=== PATIENT | female | born 1940 | race Caucasian/White ===

== ENCOUNTER 2019-01-31 03:10 | Inpatient (IN) | payer MEDICARE ==
--- NOTE | 2019-01-31 03:33 | ER Document Report ---
ED General - General Chief Complaint: Altered Mental Status Stated Complaint: Altered Mental Status Time Seen by Provider: 01/31/19 03:23 Notes: Patient is a 78-year-old female that comes emergency department from home with family for chief complaint of altered mental status. Family states that it 2 AM patient suddenly became completely confused, did not know what was going on, did not recognize her family, started trying to chew on blankets. They state that about 15 hours ago patient also seemed confused. They state otherwise patient has been acting normally and her baseline is completely oriented. No facial droop, focal numbness or weakness, vomiting, fall, or other symptoms reported except for occasionally complaining of some abdominal pain intermittently for the past couple of days. No fevers reported. Patient does have a history of lung cancer and that she elected not to have treated, this was about a year ago on diagnosis, she still smokes, she is on 2 L nasal cannula at all times, has a history of COPD, type 2 diabetes, and gout. She is not on a blood thinner. She has had a cholecystectomy. No medical history reported otherwise. Son is power of business attorney and at bedside, patient does not have DNR preparations. - Related Data Allergies/Adverse Reactions: ofloxacin [From Floxin] Allergy (Verified 01/31/19 04:40) Penicillins Allergy (Verified 01/31/19 04:39) Past Medical History - General Information source: Relative - son and granddaughter - Social History Smoking Status: Current Every Day Smoker Frequency of alcohol use: None Drug Abuse: None Lives with: Family Family History: Reviewed & Not Pertinent Pulmonary Medical History: Reports: Hx COPD Endocrine Medical History: Reports: Hx Diabetes Mellitus Type 2 Malignancy Medical History: Reports: Hx Lung Cancer Musculoskeletal Medical History: Reports Hx Gout Past Surgical History: Reports: Hx Cholecystectomy - Immunizations Immunizations up to date: Yes Hx Diphtheria, Pertussis, Tetanus Vaccination: Yes Review of Systems - Review of Systems Constitutional: See HPI EENT: No symptoms reported Cardiovascular: No symptoms reported Respiratory: No symptoms reported Gastrointestinal: See HPI Genitourinary: No symptoms reported Female Genitourinary: No symptoms reported Musculoskeletal: No symptoms reported Skin: No symptoms reported Hematologic/Lymphatic: No symptoms reported Neurological/Psychological: See HPI Physical Exam - Vital signs Vitals: Resp 24 H 01/31/19 03:19 - Notes Notes: GENERAL: Alert, responsive, does not appear to be in distress HEAD: Normocephalic, atraumatic. EYES: Pupils equal, round, and reactive to light. Extraocular movements intact. ENT: Oral mucosa dry, tongue midline. Oropharynx unremarkable. Airway patent. NECK: Full range of motion. Supple. Trachea midline. LUNGS: Decreased bilaterally, no wheezes, rales, or rhonchi. No respiratory distress. HEART: Regular rate and rhythm. No murmur ABDOMEN: Bloating of the abdomen with diffuse generalized tenderness but no specific areas of guarding. Bowel sounds are present. GENITOURINARY: No obvious concerning external abnormality EXTREMITIES: Moves all 4 extremities spontaneously. No edema, normal radial and dorsalis pedis pulses bilaterally. No cyanosis. BACK: no cervical, thoracic, lumbar midline tenderness. No saddle anesthesia, normal distal neurovascular exam. Moves all extremities in full range of motion. NEUROLOGICAL: Alert and cooperative but only oriented to person, not oriented to family, events, place. Normal speech. Cranial nerves II through XII grossly intact. PSYCH: Normal affect, normal mood. SKIN: Warm, dry, normal turgor. No rashes or lesions noted. Course - Re-evaluation Re-evalutation: Patient is alert and cooperative but she is confused to everything but her person. This is apparently not her baseline at all, normally she is completely oriented and conversational per family at bedside. Patient is not tachycardic, hypotensive. Lungs clear, exam unremarkable except she does have a bloated and generally tender abdomen without severe tenderness or guarding. Temperature checked and patient was noted to have a fever of 100.8, given Tylenol, septic work-up initiated. Cultures pending. Urinalysis unremarkable, chest x-ray unremarkable, CBC shows mild leukocytosis but is nonspecific, chemistry shows hyponatremia with elevated BUN but is otherwise nonspecific. Lipase negative. Troponin indeterminate. CAT scan of the abdomen and pelvis with IV contrast performed because of family reporting she was complaining of abdominal pain, fever, and bloating/tenderness on exam. This is likely mets to the liver and enteritis versus mesenteritis or pancreatitis. Lipase is not elevated. Starting on Rocephin and Flagyl because of her penicillin and ofloxacin allergy, patient has been given initial 500 cc bolus before labs and now she is on slow continuous fluids. I did discuss all the details with family including the probable metastasis from known lung cancer. Son is the power of business attorney, he states that he is hoping that patient returns to mental baseline so he can discuss this with her as well. Because of her altered mental status, fever, mesenteritis/enteritis patient will require admission. Discussed with Dr. Lerma. 01/31/19 07:[address] Bernabe, hospitalist, patient admitted to [facility] full admission. - Vital Signs Vital signs: Temp Pulse Resp BP Pulse Ox 98.7 F 91 19 127/50 H 97 01/31/19 06:09 01/31/19 07:03 01/31/19 07:03 01/31/19 07:03 01/31/19 07:03 - Laboratory Result Diagrams: 01/31/19 03:40 01/31/19 03:40 Laboratory results interpreted by me: 01/31/19 01/31/19 01/31/19 03:24 03:40 03:40 WBC 11.9 H RBC 5.39 H RDW 15.7 H Lymph % (Auto) 9.5 L Absolute Neuts (auto) 9.2 H Sodium 128.8 L Chloride 90 L BUN 24 H Glucose 166 H POC Glucose 152 H Calcium 10.4 H AST 41 H Alkaline Phosphatase 130 H Total Protein 6.0 L Urine Protein Urine Blood 01/31/19 04:35 WBC RBC RDW Lymph % (Auto) Absolute Neuts (auto) Sodium Chloride BUN Glucose POC Glucose Calcium AST Alkaline Phosphatase Total Protein Urine Protein 30 H Urine Blood SMALL H Discharge - Discharge Clinical Impression: Altered mental status Qualifiers: Altered mental status type: unspecified Qualified Code(s): R41.82 - Altered mental status, unspecified Abdominal pain Qualifiers: Abdominal location: generalized Qualified Code(s): R10.84 - Generalized abdominal pain Fever Qualifiers: Fever type: unspecified Qualified Code(s): R50.9 - Fever, unspecified Lung cancer, primary, with metastasis from lung to other site Qualifiers: Laterality: unspecified laterality Qualified Code(s): C34.90 - Malignant neoplasm of unspecified part of unspecified bronchus or lung Condition: Stable Disposition: ADMITTED INPATIENT Admitting Provider: Srinivasa (Hospitalist) Unit Admitted: [facility]
[2019-01-31] MEDS ORDERED: ACETAMINOPHEN 325 MG TABLET PO ONE (03:41)
[2019-01-31 04:09] LABS: VENOUS BLOOD BASE EXCESS 3.1 mmol/L; VENOUS BLOOD HCO3 29.6 mmol/L (20-32); VENOUS BLOOD PH 7.37 (7.30-7.42)
[2019-01-31 04:13] LABS: ABSOLUTE BASOPHILS # (AUTO) 0.1 10^3/uL (0.0-0.2); ABSOLUTE EOSINOPHILS # (AUTO) 0.4 10^3/uL (0.0-0.6); ABSOLUTE LYMPHOCYTES (AUTO) 1.1 10^3/uL (0.5-4.7); ABSOLUTE MONOCYTES (AUTO) 1.1 10^3/uL (0.1-1.4); ABSOLUTE NEUT (AUTO) 9.2 10^3/uL (1.7-8.2); BASOPHILS % (AUTO) 0.9 % (0-2); EOSINOPHILS % (AUTO) 3.2 % (0-6); HEMOGLOBIN 14.7 g/dL (12.0-15.5); LYMPHOCYTES % (AUTO) 9.5 % (13-45); MEAN CORPUSCULAR HEMOGLOBIN 27.3 pg (27.0-33.4); MEAN CORPUSCULAR HGB CONC 32.7 g/dL (32.0-36.0); MEAN CORPUSCULAR VOLUME 84 fl (80-97); PLATELET COUNT 225 10^3/uL (150-450); RED BLOOD COUNT 5.39 10^6/uL (3.72-5.28); RED CELL DISTRIBUTION WIDTH 15.7 % (11.5-14.0); SEGMENTED NEUTROPHILS % (AUTO) 77.4 % (42-78); TOTAL CELLS COUNTED % (AUTO) 100 %; WHITE BLOOD COUNT 11.9 10^3/uL (4.0-10.5)
[2019-01-31 04:22] LABS: ALBUMIN 3.6 g/dL (3.5-5.0); ALKALINE PHOSPHATASE 130 U/L (38-126); ANION GAP 9 (5-19); ASPARTATE AMINO TRANSFERASE 41 U/L (14-36); BILIRUBIN,DIRECT 0.3 mg/dL (0.0-0.4); BILIRUBIN,TOTAL 0.9 mg/dL (0.2-1.3); BLOOD UREA NITROGEN 24 mg/dL (7-20); CALCIUM 10.4 mg/dL (8.4-10.2); CARBON DIOXIDE 30 mmol/L (22-30); CHLORIDE 90 mmol/L (98-107); GLUCOSE 166 mg/dL (75-110); POTASSIUM 4.8 mmol/L (3.6-5.0)
[2019-01-31] MEDS ORDERED: NORMAL SALINE 500 ML IV ONE (04:28)
[2019-01-31 04:37] LABS: ANISOCYTOSIS SLIGHT; PLATELET COMMENT ADEQUATE; PLATELET LARGE PRESENT
--- NOTE | 2019-01-31 04:45 | RADIOLOGY REPORT (SQ) ---
EXAM DESCRIPTION: CT HEAD WITHOUT IV CONTRAST COMPLETED DATE/TME: 01/31/2019 03:29 CLINICAL HISTORY: AMS, hx untreated lung cancer COMPARISON: None available TECHNIQUE: Axial CT of the head obtained from the skull apex to the skull base without contrast. FINDINGS: No acute intracranial hemorrhage identified. No mass, mass effect, shift of the midline, abnormal extra-axial fluid collection or CT evidence of acute ischemic change identified. The ventricular system and sulcal spaces are age appropriate. Confluent areas of hypodensity throughout the supratentorial white matter are nonspecific and may be related to chronic small vessel ischemic change. The visualized paranasal sinuses and the mastoids are clear. No skull fracture identified. Visualized orbits and globes are unremarkable. Atherosclerotic calcification of the intracranial internal carotid arteries. DLP: 990.56 mGy-cm IMPRESSION: 1. No acute intracranial abnormality by CT criteria. This exam was performed according to our departmental dose-optimization program, which includes automated exposure control, adjustment of the mA and/or kV according to patient size and/or use of iterative reconstruction technique.
--- NOTE | 2019-01-31 04:55 | RADIOLOGY REPORT (SQ) ---
EXAM DESCRIPTION: XR CHEST 1 VIEW COMPLETED DATE/TME: 01/31/2019 03:29 CLINICAL HISTORY: 78 years, Female, AMS COMPARISON: None. NUMBER OF VIEWS: 1 TECHNIQUE: Portable chest LIMITATIONS: None. FINDINGS: Cardiomegaly. Atheromatous change thoracic aorta. Osteopenia. Lungs clear. No pneumothorax IMPRESSION: Cardiomegaly. Lungs are clear copyright 2010 [employer]- All Rights Reserved
[2019-01-31 04:56] LABS: APPEARANCE,URINE CLEAR; BILIRUBIN,URINE NEGATIVE (NEGATIVE); COLOR,URINE YELLOW; GLUCOSE, URINE NEGATIVE (NEGATIVE); KETONES,URINE NEGATIVE (NEGATIVE); LEUKOCYTE ESTERASE,URINE NEGATIVE (NEGATIVE); NITRITE,URINE NEGATIVE (NEGATIVE); PROTEIN,URINE 30 mg/dL (NEGATIVE); URINE SPECIFIC GRAVITY 1.006; UROBILINOGEN,URINE NEGATIVE mg/dL (<2.0)
--- NOTE | 2019-01-31 07:08 | RADIOLOGY REPORT (SQ) ---
EXAM DESCRIPTION: CT ABDOMEN PELVIS WITH IV CONTRAST COMPLETED DATE/TME: 01/31/2019 05:13 CLINICAL HISTORY: abd pain, fever. CREAT 0.77 COMPARISON: None Available. TECHNIQUE: CT of the abdomen and pelvis performed following IV administration of 59 mL of Omnipaque 350. DLP: 950.74 mGycm FINDINGS: Lung Bases: Coronary artery atherosclerosis. In the left lung there are 2 subsolid nodular opacities, largest seen on image #9, series 4 measuring 0.4 cm. Bones: Bilateral L4 pars defects with grade 2 spondylolisthesis of L4 over L5. Bilateral L5 pars defects with grade 1 spondylolisthesis of L5 over S1. Multilevel endplate spondylosis. Abdomen: Liver: Multiple hypoenhancing nodules in the right hepatic lobe, the largest of these is in hepatic segment VIII measuring 1.8 x 1.8 cm. Gallbladder: Prior cholecystectomy. Spleen, Pancreas, and Adrenal Glands: Calcified splenic granulomas. Wedge-shaped hypodensities in the spleen of indeterminate etiology may represent remote infarctions. Splenic mass not excluded. General glands are unremarkable. The distal body and tail of the pancreas appear 2 hypoenhancing.. Kidneys: The kidneys have normal size without evidence of solid mass or hydronephrosis. Vasculature: Aortoiliac atherosclerosis. IVC is unremarkable. The portal vein is patent. The proximal visceral and renal arteries are patent. Questionable haziness surrounding the mesenteric vessels of indeterminate etiology. Stomach: The stomach and duodenum have normal course. Other: No free intraperitoneal air. No free fluid or lymphadenopathy. Pelvis: Bladder: Urinary bladder is unremarkable. Bowel: No dilated loops of large or small bowel. Appendix: Not identified. Pelvis: Fat-containing left inguinal hernia. Prior hysterectomy. IMPRESSION: 1. Hypodensity involving the distal body and tail of the pancreas with mild haziness surrounding mesenteric vessels. These findings could be seen with pancreatitis. Correlation with serum lipase recommended. Alternatively, if lipase normal, these findings may be related nonspecific enteritis/mesenteritis of infectious or inflammatory etiology. 2. Multiple hypoenhancing hypodensities in the right hepatic lobe, the largest measuring 1.8 cm. These findings are concerning for metastatic disease. 3. Wedge-shaped peripheral hypodensities involving the spleen. These may represent remote infarctions. Apparently, other splenic lesion or metastatic disease may produce this appearance. 4. Incompletely evaluated multiple subsolid nodules in the left lung, largest measuring [address] of the chest recommended for complete characterization. 5. Coronary artery atherosclerosis. This exam was performed according to our departmental dose-optimization program, which includes automated exposure control, adjustment of the mA and/or kV according to patient size and/or use of iterative reconstruction technique.
[2019-01-31] MEDS ORDERED: NORMAL SALINE 1000 ML 1,000 ML IV PRN ×2 (07:14→08:15)
[2019-01-31] MEDS ORDERED: CEFTRIAXONE 1 GM/D5W RTU 1 GM/50 ML RTUPB IV ONE (07:22)
--- NOTE | 2019-01-31 08:03 | EKG REPORT ---
SEVERITY:- ABNORMAL ECG - SINUS TACHYCARDIA VENTRICULAR TRIGEMINY LEFT AXIS DEVIATION PROBABLE LVH WITH SECONDARY REPOL ABNRM : Confirmed by: Jennifer Flower MD 31-Jan-2019 08:02:41
[2019-01-31] MEDS ORDERED: ONDANSETRON HCL INJ/PF 4 MG/2 ML SDV IV PRN (08:15)
[2019-01-31] MEDS ORDERED: DEXTROSE 50%-WATER 25 GM/50 ML DISP.SYRIN IV PRN ×2 (08:22)
[2019-01-31] MEDS ORDERED: DEXTROSE 40% GEL 15 GM TUBE PO PRN ×2 (08:22)
[2019-01-31] MEDS ORDERED: GLUCAGON,HUMAN RECOMB 1 MG INJ IM PRN (08:22)
[2019-01-31] MEDS ORDERED: METRONIDAZOLE 500 MG/NS RTU 500 MG/100 ML RTUPB IV ONE (08:30)
--- NOTE | 2019-01-31 08:36 | PDOC H&P ---
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 As per the family members patient is complaining of nonspecific abdominal pain back pain since yesterday. No nausea no vomiting no constipation noticed foul- smelling diarrhea. Not on antibiotics recently. Went to see the patient in the emergency room son was at bedside he has the power of trade mark attorney and he requested to make her mom DNR/DNI. Past Medical History Pulmonary Medical History: Reports: Chronic Obstructive Pulmonary Disease (COPD) Endocrine Medical History: Reports: Diabetes Mellitus Type 2 Malignancy Medical History: Reports: Lung Cancer Musculoskeltal Medical History: Reports: Gout Past Surgical History Past Surgical History: Reports: Cholecystectomy Social History Lives with: Family Smoking Status: Current Every Day Smoker Frequency of Alcohol Use: None Hx Recreational Drug Use: No Hx Prescription Drug Abuse: No - Advance Directive Resuscitation Status: Do Not Resuscitate Family History Family History: Reviewed & Not Pertinent Parental Family History Reviewed: Yes - Hypertension and heart problems Children Family History Reviewed: Unknown Sibling(s) Family History Reviewed.: Unknown Medication/Allergy Allergies/Adverse Reactions: ofloxacin [From Floxin] Allergy (Verified 01/31/19 04:40) Penicillins Allergy (Verified 01/31/19 04:39) Review of Systems ROS unobtainable: Other - History obtained from the family members Constitutional: ABSENT: fatigue, fever(s), headache(s), night sweats, weakness Eyes: ABSENT: visual disturbances Ears: ABSENT: hearing changes Nose, Mouth, and Throat: ABSENT: sore throat Cardiovascular: ABSENT: dyspnea on exertion, orthropnea, palpitations Respiratory: ABSENT: dyspnea, hemoptysis Gastrointestinal: PRESENT: diarrhea Genitourinary: ABSENT: dysuria, hematuria Integumentary: ABSENT: rash, wounds Neurological: PRESENT: confusion Psychiatric: PRESENT: anxiety Physical Exam Vital Signs: Temp Pulse Resp BP Pulse Ox 98.7 F 91 19 127/50 H 97 01/31/19 06:09 01/31/19 07:03 01/31/19 07:03 01/31/19 07:03 01/31/19 07:03 Intake & Output 01/30/19 01/31/19 02/01/19 06:59 06:59 06:59 Intake Total 500 50 Balance 500 50 Weight 52 kg General appearance: PRESENT: disheveled, mild distress, thin Head exam: PRESENT: atraumatic Eye exam: PRESENT: PERRLA Mouth exam: PRESENT: dry mucosa Teeth exam: PRESENT: poor dentation Neck exam: ABSENT: carotid bruit, JVD, lymphadenopathy, thyromegaly Respiratory exam: PRESENT: decreased breath sounds Cardiovascular exam: PRESENT: RRR. ABSENT: diastolic murmur, rubs, systolic murmur GI/Abdominal exam: PRESENT: normal bowel sounds, soft. ABSENT: distended, guarding, mass, organolmegaly, rebound, tenderness Rectal exam: PRESENT: deferred Extremities exam: PRESENT: full ROM. ABSENT: calf tenderness, clubbing, pedal edema Neurological exam: PRESENT: alert, awake, oriented to time, oriented to situation, CN II-XII grossly intact. ABSENT: oriented to person, oriented to place, motor sensory deficit Psychiatric exam: PRESENT: agitated, anxious Results Laboratory Results: 01/31/19 03:40 01/31/19 03:40 01/31/19 01/31/19 01/31/19 03:40 03:40 03:40 WBC 11.9 H RBC 5.39 H Hgb 14.7 Hct 45.0 MCV 84 MCH 27.3 MCHC 32.7 RDW 15.7 H Plt Count 225 Seg Neutrophils % 77.4 VBG pH 7.37 VBG pCO2 52.0 VBG HCO3 29.6 VBG Base Excess 3.1 Sodium 128.8 L Potassium 4.8 Chloride 90 L Carbon Dioxide 30 Anion Gap 9 BUN 24 H Creatinine 0.77 Est GFR ( Amer) > 60 Glucose 166 H Lactic Acid Calcium 10.4 H Total Bilirubin 0.9 AST 41 H Alkaline Phosphatase 130 H Total Protein 6.0 L Albumin 3.6 Lipase 53.7 Urine Color Urine Appearance Urine pH Ur Specific [place] Urine Protein Urine Glucose (UA) Urine Ketones Urine Blood Urine Nitrite Ur Leukocyte Esterase Urine WBC (Auto) 01/31/19 01/31/19 03:40 04:35 WBC RBC Hgb Hct MCV MCH MCHC RDW Plt Count Seg Neutrophils % VBG pH VBG pCO2 VBG HCO3 VBG Base Excess Sodium Potassium Chloride Carbon Dioxide Anion Gap BUN Creatinine Est GFR ( Amer) Glucose Lactic Acid 1.9 Calcium Total Bilirubin AST Alkaline Phosphatase Total Protein Albumin Lipase Urine Color YELLOW Urine Appearance CLEAR Urine pH 7.0 Ur Specific [place] 1.006 Urine Protein 30 H Urine Glucose (UA) NEGATIVE Urine Ketones NEGATIVE Urine Blood SMALL H Urine Nitrite NEGATIVE Ur Leukocyte Esterase NEGATIVE Urine WBC (Auto) 0 01/31/19 03:40 Troponin I 0.044 Impressions: Chest X-Ray 01/31/19 03:29 IMPRESSION: Cardiomegaly. Lungs are clear copyright 2010 [employer]- All Rights Reserved Head CT 01/31/19 03:29 IMPRESSION: 1. No acute intracranial abnormality by CT criteria. This exam was performed according to our departmental dose-optimization program, which includes automated exposure control, adjustment of the mA and/or kV according to patient size and/or use of iterative reconstruction technique. Abdomen/Pelvis CT 01/31/19 05:13 IMPRESSION: 1. Hypodensity involving the distal body and tail of the pancreas with mild haziness surrounding mesenteric vessels. These findings could be seen with pancreatitis. Correlation with serum lipase recommended. Alternatively, if lipase normal, these findings may be related nonspecific enteritis/mesenteritis of infectious or inflammatory etiology. 2. Multiple hypoenhancing hypodensities in the right hepatic lobe, the largest measuring 1.8 cm. These findings are concerning for metastatic disease. 3. Wedge-shaped peripheral hypodensities involving the spleen. These may represent remote infarctions. Apparently, other splenic lesion or metastatic disease may produce this appearance. 4. Incompletely evaluated multiple subsolid nodules in the left lung, largest measuring [address] of the chest recommended for complete characterization. 5. Coronary artery atherosclerosis. This exam was performed according to our departmental dose-optimization program, which includes automated exposure control, adjustment of the mA and/or kV according to patient size and/or use of iterative reconstruction technique. Assessment and Plan - Diagnosis (1) Abdominal pain Qualifiers: Abdominal location: generalized Qualified Code(s): R10.84 - Generalized abdominal pain Is this a current diagnosis for this admission?: Yes (2) Lung cancer, primary, with metastasis from lung to other site Qualifiers: Laterality: unspecified laterality Qualified Code(s): C34.90 - Malignant neoplasm of unspecified part of unspecified bronchus or lung Is this a current diagnosis for this admission?: No (3) Altered mental status Qualifiers: Altered mental status type: unspecified Qualified Code(s): R41.82 - Altered mental status, unspecified Is this a current diagnosis for this admission?: Yes (4) Fever Qualifiers: Fever type: unspecified Qualified Code(s): R50.9 - Fever, unspecified Is this a current diagnosis for this admission?: Yes (6) Protein-energy malnutrition Qualifiers: Protein-calorie malnutrition severity: moderate Qualified Code(s): E44.0 - Moderate protein-calorie malnutrition Is this a current diagnosis for this admission?: Yes - Summary Assessment: 01[birth year]31[birth year][id number]-arsb-old female with history of COPD not on home oxygen, lung can cer with mets to the liver, gout, chronic smoker, diabetes mellitus type 2 admitted for altered mental status CT head was negative in the emergency room. CT abdominal pelvis indicates possible enteritis. Family is given the history of foul-smelling diarrhea since yesterday and she was started on IV levofloxacin 500 mg daily and Flagyl 500 mg every 6 hours. Blood cultures urine cultures are requested. Family requesting for a DNR/DNI status. She is going to be admitted to the medical floor as inpatient. Palliative care consult was requested. GI prophylaxis DVT prophylaxis initiated. To place her on nicotine patch. Patient also found to be cachectic BMI is less than 22. Dietary consult will be requested. CT scan of the abdomen also shows possible mets to the liver. She was placed on insulin sliding scale before meals and at bedtime. Fall precautions are requested. She was also started on IV fluids normal saline at 75 cc/h. I am going to follow the patient on regular basis. Work-up will be requested. She has a Lau's catheter.
[2019-01-31] MEDS ORDERED: FAMOTIDINE 20 MG TABLET PO SCH (10:00)
[2019-01-31] MEDS: LEVOFLOXACIN 500 MG/D5W RTU 500 MG/100 ML RTUPB IV SCH (11:04)
[2019-01-31] MEDS: FAMOTIDINE 20 MG TABLET PO SCH (13:02)
[2019-01-31] MEDS: INSULIN REG, HUMAN 100 UNIT/ML 3 ML VIAL (PYX) SUBCUT SCH ×2 (13:06→17:41)
[2019-01-31] MEDS: METRONIDAZOLE 500 MG/NS RTU 500 MG/100 ML RTUPB IV SCH ×2 (16:00→22:09)
[2019-01-31] MEDS: HEPARIN SOD (PORCINE) 5,000 UNIT/ML 1 ML VIAL SUBCUT SCH ×2 (17:41→22:10)
[2019-01-31] MEDS: NICOTINE 21 MG/24 HR PATCH.TD24 TD SCH (17:43)
[2019-02-01] MEDS: INSULIN REG, HUMAN 100 UNIT/ML 3 ML VIAL (PYX) SUBCUT SCH ×5 (01:11→21:29)
[2019-02-01] MEDS: METRONIDAZOLE 500 MG/NS RTU 500 MG/100 ML RTUPB IV SCH ×4 (02:12→20:08)
[2019-02-01] MEDS: LORAZEPAM INJ 2 MG/1 ML VIAL IV PRN ×2 (02:12→19:52)
[2019-02-01 05:13] LABS: ALBUMIN 2.9 g/dL (3.5-5.0); ALKALINE PHOSPHATASE 98 U/L (38-126); ANION GAP 7 (5-19); ASPARTATE AMINO TRANSFERASE 39 U/L (14-36); BILIRUBIN,DIRECT 0.2 mg/dL (0.0-0.4); BILIRUBIN,TOTAL 0.6 mg/dL (0.2-1.3); BLOOD UREA NITROGEN 20 mg/dL (7-20); CALCIUM 9.6 mg/dL (8.4-10.2); CARBON DIOXIDE 27 mmol/L (22-30); CHLORIDE 99 mmol/L (98-107); GLUCOSE 108 mg/dL (75-110); POTASSIUM 3.7 mmol/L (3.6-5.0); TOTAL PROTEIN 5.1 g/dL (6.3-8.2)
[2019-02-01] MEDS: HEPARIN SOD (PORCINE) 5,000 UNIT/ML 1 ML VIAL SUBCUT SCH ×3 (06:19→21:19)
[2019-02-01 06:41] LABS: ABSOLUTE BASOPHILS # (AUTO) 0.1 10^3/uL (0.0-0.2); ABSOLUTE EOSINOPHILS # (AUTO) 0.2 10^3/uL (0.0-0.6); ABSOLUTE LYMPHOCYTES (AUTO) 0.7 10^3/uL (0.5-4.7); ABSOLUTE MONOCYTES (AUTO) 0.8 10^3/uL (0.1-1.4); ABSOLUTE NEUT (AUTO) 5.8 10^3/uL (1.7-8.2); BASOPHILS % (AUTO) 0.9 % (0-2); EOSINOPHILS % (AUTO) 2.6 % (0-6); HEMATOCRIT 37.1 % (36.0-47.0); LYMPHOCYTES % (AUTO) 9.7 % (13-45); MEAN CORPUSCULAR HEMOGLOBIN 27.7 pg (27.0-33.4); MEAN CORPUSCULAR HGB CONC 33.4 g/dL (32.0-36.0); MEAN CORPUSCULAR VOLUME 83 fl (80-97); MONOCYTES % (AUTO) 10.7 % (3-13); PLATELET COUNT 128 10^3/uL (150-450); RED BLOOD COUNT 4.48 10^6/uL (3.72-5.28); RED CELL DISTRIBUTION WIDTH 15.6 % (11.5-14.0); SEGMENTED NEUTROPHILS % (AUTO) 76.1 % (42-78); TOTAL CELLS COUNTED % (AUTO) 100 %; WHITE BLOOD COUNT 7.6 10^3/uL (4.0-10.5)
[2019-02-01 07:05] LABS: HEMOGLOBIN 12.4 g/dL (12.0-15.5)
--- NOTE | 2019-02-01 08:48 | PDOC PROGRESS REPORT ---
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 As per the family members patient is complaining of nonspecific abdominal pain back pain since yesterday. No nausea no vomiting no constipation noticed foul-smelling diarrhea. Not on antibiotics recently. Went to see the patient in the emergency room son was at bedside he has the power of claim attorney and he requested to make her mom DNR/DNI. 02/01/[id number]-nqnr-old female with history of lung cancer metastasis to the [facility] er, COPD, chronic smoker, diabetes mellitus, gout admitted for altered mental status and possible colitis. CODE STATUS is DNR/DNI. Patient more alert more communicative but she is said she is in [place] now. Able to eat her breakfast without any problems today. No diarrhea was noticed since admission. Cultures are negative so far. Reason For Visit: COLITIS Physical Exam Vital Signs: Temp Pulse Resp BP Pulse Ox 98.3 F 84 18 133/112 H 94 02/01/19 00:00 02/01/19 00:00 02/01/19 00:00 02/01/19 00:00 02/01/19 05:02 Intake & Output 01/31/19 02/01/19 02/02/19 06:59 06:59 06:59 Intake Total 500 2025 Output Total 1 Balance 500 202 Weight 52 kg 55.3 kg General appearance: PRESENT: no acute distress, thin Head exam: PRESENT: atraumatic Eye exam: PRESENT: PERRLA Mouth exam: PRESENT: moist, tongue midline Teeth exam: PRESENT: poor dentation Neck exam: ABSENT: carotid bruit, JVD, lymphadenopathy, thyromegaly Respiratory exam: PRESENT: decreased breath sounds Cardiovascular exam: PRESENT: RRR. ABSENT: diastolic murmur, rubs, systolic murmur GI/Abdominal exam: PRESENT: normal bowel sounds, soft. ABSENT: distended, guarding, mass, organolmegaly, rebound, tenderness Rectal exam: PRESENT: deferred Extremities exam: PRESENT: full ROM. ABSENT: calf tenderness, clubbing, pedal edema Neurological exam: PRESENT: alert, awake, CN II-XII grossly intact Psychiatric exam: PRESENT: appropriate affect, normal mood. ABSENT: homicidal ideation, suicidal ideation Results Laboratory Results: 02/01/19 06:29 02/01/19 04:06 02/01/19 02/01/19 02/01/19 04:06 04:06 04:06 WBC Cancelled RBC Cancelled Hgb Cancelled Hct Cancelled MCV Cancelled MCH Cancelled MCHC Cancelled RDW Cancelled Plt Count Cancelled Seg Neutrophils % Cancelled Sodium 132.7 L Potassium 3.7 Chloride 99 Carbon Dioxide 27 Anion Gap 7 BUN 20 Creatinine 0.78 Est GFR ( Amer) > 60 Glucose 108 Calcium 9.6 Magnesium 1.5 L Total Bilirubin 0.6 AST 39 H Alkaline Phosphatase 98 Total Protein 5.1 L Albumin 2.9 L TSH 1.69 02/01/19 06:29 WBC 7.6 RBC 4.48 Hgb 12.4 D Hct 37.1 MCV 83 MCH 27.7 MCHC 33.4 RDW 15.6 H Plt Count 128 L Seg Neutrophils % 76.1 Sodium Potassium Chloride Carbon Dioxide Anion Gap BUN Creatinine Est GFR ( Amer) Glucose Calcium Magnesium Total Bilirubin AST Alkaline Phosphatase Total Protein Albumin TSH 01/31/19 03:40 Troponin I 0.044 Impressions: Chest X-Ray 01/31/19 03:29 IMPRESSION: Cardiomegaly. Lungs are clear copyright 2011 [employer]- All Rights Reserved Head CT 01/31/19 03:29 IMPRESSION: 1. No acute intracranial abnormality by CT criteria. This exam was performed according to our departmental dose-optimization program, which includes automated exposure control, adjustment of the mA and/or kV according to patient size and/or use of iterative reconstruction technique. Abdomen/Pelvis CT 01/31/19 05:13 IMPRESSION: 1. Hypodensity involving the distal body and tail of the pancreas with mild haziness surrounding mesenteric vessels. These findings could be seen with pancreatitis. Correlation with serum lipase recommended. Alternatively, if lipase normal, these findings may be related nonspecific enteritis/mesenteritis of infectious or inflammatory etiology. 2. Multiple hypoenhancing hypodensities in the right hepatic lobe, the largest measuring 1.8 cm. These findings are concerning for metastatic disease. 3. Wedge-shaped peripheral hypodensities involving the spleen. These may represent remote infarctions. Apparently, other splenic lesion or metastatic disease may produce this appearance. 4. Incompletely evaluated multiple subsolid nodules in the left lung, largest measuring [address] of the chest recommended for complete characterization. 5. Coronary artery atherosclerosis. This exam was performed according to our departmental dose-optimization program, which includes automated exposure control, adjustment of the mA and/or kV according to patient size and/or use of iterative reconstruction technique. Assessment and Plan - Diagnosis (1) Abdominal pain Qualifiers: Abdominal location: generalized Qualified Code(s): R10.84 - Generalized a bdominal pain Is this a current diagnosis for this admission?: Yes (2) Lung cancer, primary, with metastasis from lung to other site Qualifiers: Laterality: unspecified laterality Qualified Code(s): C34.90 - Malignant neoplasm of unspecified part of unspecified bronchus or lung Is this a current diagnosis for this admission?: No (3) Altered mental status Qualifiers: Altered mental status type: unspecified Qualified Code(s): R41.82 - Altered mental status, unspecified Is this a current diagnosis for this admission?: Yes (4) Fever Qualifiers: Fever type: unspecified Qualified Code(s): R50.9 - Fever, unspecified Is this a current diagnosis for this admission?: Yes (6) Protein-energy malnutrition Qualifiers: Protein-calorie malnutrition severity: moderate Qualified Code(s): E44.0 - Moderate protein-calorie malnutrition Is this a current diagnosis for this admission?: Yes - Plan Summary Summary: 01/31/[id number]-jwzj-old female with history of COPD not on home oxygen, lung cancer with mets to the liver, gout, chronic smoker, diabetes mellitus type 2 admitted for altered mental status CT head was negative in the emergency room. CT abdominal pelvis indicates possible enteritis. Family is given the history of foul-smelling diarrhea since yesterday and she was started on IV levofloxacin 500 mg daily and Flagyl 500 mg every 6 hours. Blood cultures urine cultures are requested. Family requesting for a DNR/DNI status. She is going to be admitted to the medical floor as inpatient. Palliative care consult was requested. GI prophylaxis DVT prophylaxis initiated. To place her on nicotine patch. Patient also found to be cachectic BMI is less than 22. Dietary consult will be request ed. CT scan of the abdomen also shows possible mets to the liver. She was placed on insulin sliding scale before meals and at bedtime. Fall precautions are requested. She was also started on IV fluids normal saline at 75 cc/h. I am going to follow the patient on regular basis. Work-up will be requested. She has a Lau's catheter. 02/01/2019-no acute events in the last 24 hours. Patient able to eat breakfast without any problems. More alert more awake. No diarrhea is noticed. Palliat rabia consult was requested. Patient CODE STATUS is DNR/DNI. Serum sodium is 132.7 hyponatremia most likely secondary to prerenal causes resolving. She is on normal saline at 75 cc/h.
[2019-02-01] MEDS: FAMOTIDINE 20 MG TABLET PO SCH (09:12)
[2019-02-01] MEDS: NICOTINE 21 MG/24 HR PATCH.TD24 TD SCH (09:12)
[2019-02-01] MEDS: LEVOFLOXACIN 500 MG/D5W RTU 500 MG/100 ML RTUPB IV SCH (10:54)
[2019-02-01] MEDS ORDERED: OXYCODONE HCL 15 MG PO PRN (12:55)
[2019-02-01] MEDS ORDERED: ALPRAZOLAM 0.5 MG TABLET PO PRN (13:13)
[2019-02-01] MEDS: PAROXETINE HCL 20 MG TABLET PO SCH (13:56)
[2019-02-01] MEDS: OMEGA-3 ACID ETHYL ESTERS 1 GM CAPSULE PO SCH (16:50)
[2019-02-01] MEDS ORDERED: (PENDING PHARMACY ID) (Omega-3/Dha/Epa/Fish Oil [Fish Oil 1,000 Mg Softgel] 1,000 MG) PO SCH (17:00)
[2019-02-01] MEDS: ALPRAZOLAM 0.5 MG TABLET PO PRN (17:51)
[2019-02-01] MEDS: ACETAMINOPHEN 325 MG TABLET PO PRN (19:53)
[2019-02-01] MEDS: BUSPIRONE HCL 10 MG TABLET PO SCH (21:15)
[2019-02-01] MEDS: OLANZAPINE 5 MG TABLET PO SCH (21:15)
[2019-02-01] MEDS: CARVEDILOL 6.25 MG TABLET PO SCH (21:15)
[2019-02-01] MEDS ORDERED: MINOCYCLINE HCL 100 MG PO SCH (22:00)
[2019-02-01] MEDS ORDERED: (PENDING PHARMACY ID) (Olanzapine [Zyprexa] 10 MG) PO SCH (22:00)
[2019-02-02] MEDS: METRONIDAZOLE 500 MG/NS RTU 500 MG/100 ML RTUPB IV SCH ×4 (03:30→20:23)
[2019-02-02] MEDS: HEPARIN SOD (PORCINE) 5,000 UNIT/ML 1 ML VIAL SUBCUT SCH ×3 (06:24→21:14)
[2019-02-02] MEDS: LEVOTHYROXINE SODIUM 0.05 MG TABLET PO SCH (06:42)
[2019-02-02] MEDS: INSULIN REG, HUMAN 100 UNIT/ML 3 ML VIAL (PYX) SUBCUT SCH ×4 (07:22→21:16)
--- NOTE | 2019-02-02 08:41 | PDOC PROGRESS REPORT ---
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 As per the family members patient is complaining of nonspecific abdominal pain back pain since yesterday. No nausea no vomiting no constipation noticed foul-smelling diarrhea. Not on antibiotics recently. Went to see the patient in the emergency room son was at bedside he has the power of business attorney and he requested to make her mom DNR/DNI. 02/01/[id number]-sres-old female with history of lung cancer metastasis to the [facility] er, COPD, chronic smoker, diabetes mellitus, gout admitted for altered mental status and possible colitis. CODE STATUS is DNR/DNI. Patient more alert more communicative but she is said she is in [place] now. Able to eat her breakfast without any problems today. No diarrhea was noticed since admission. Cultures are negative so far. 02/02/[id number]-lfat-old female with history of lung cancer metastatic to stress to the liver, COPD chronic smoker with history of diabetes mellitus and gout ad mitted for altered mental status and possible colitis. No diarrhea was noticed cultures are negative. Presently on IV Flagyl and IV levo floxacillin. Consult Dr. Mesa for further management of the carcinoma. Bone scan was requested for today. No acute events in the last 24 hours. Afebrile. Family wants to take her home once she is stable. Reason For Visit: COLITIS Physical Exam Vital Signs: Temp Pulse Resp BP Pulse Ox 98.3 F 95 18 149/75 H 100 02/01/19 20:34 02/01/19 20:34 02/01/19 20:34 02/01/19 20:34 02/01/19 20:34 Intake & Output 02/01/19 02/02/19 02/03/19 06:59 06:59 06:59 Intake Total 2025 1220 Output Total 1 Balance 2024 1220 Weight 55.3 kg 55.1 kg General appearance: PRESENT: no acute distress, cooperative, thin Head exam: PRESENT: atraumatic Eye exam: PRESENT: PERRLA Mouth exam: PRESENT: moist, tongue midline Teeth exam: PRESENT: poor dentation Neck exam: ABSENT: carotid bruit, JVD, lymphadenopathy, thyromegaly Respiratory exam: PRESENT: decreased breath sounds Cardiovascular exam: PRESENT: RRR. ABSENT: diastolic murmur, rubs, systolic murmur GI/Abdominal exam: PRESENT: normal bowel sounds, soft. ABSENT: distended, guarding, mass, organolmegaly, rebound, tenderness Rectal exam: PRESENT: deferred Extremities exam: PRESENT: full ROM. ABSENT: calf tenderness, clubbing, pedal edema Neurological exam: PRESENT: alert, awake, oriented to person, oriented to place, oriented to time, oriented to situation, CN II-XII grossly intact. ABSENT: motor sensory deficit Psychiatric exam: PRESENT: appropriate affect, normal mood. ABSENT: homicidal ideation, suicidal ideation Skin exam: PRESENT: dry, intact, warm. ABSENT: cyanosis, rash Results Laboratory Results: 02/01/19 06:29 02/01/19 04:06 01/31/19 03:40 Troponin I 0.044 Impressions: Chest X-Ray 01/31/19 03:29 IMPRESSION: Cardiomegaly. Lungs are clear copyright 2011 [employer]- All Rights Reserved Head CT 01/31/19 03:29 IMPRESSION: 1. No acute intracranial abnormality by CT criteria. This exam was performed according to our departmental dose-optimization program, which includes automated exposure control, adjustment of the mA and/or kV according to patient size and/or use of iterative reconstruction technique. Abdomen/Pelvis CT 01/31/19 05:13 IMPRESSION: 1. Hypodensity involving the distal body and tail of the pancreas with mild haziness surrounding mesenteric vessels. These findings could be seen with pancreatitis. Correlation with serum lipase recommended. Alternatively, if lipase normal, these findings may be related nonspecific enteritis/mesenteritis of infectious or inflammatory etiology. 2. Multiple hypoenhancing hypodensities in the right hepatic lobe, the largest measuring 1.8 cm. These findings are concerning for metastatic disease. 3. Wedge-shaped peripheral hypodensities involving the spleen. These may represent remote infarctions. Apparently, other splenic lesion or metastatic disease may produce this appearance. 4. Incompletely evaluated multiple subsolid nodules in the left lung, largest measuring [address] of the chest recommended for complete characterization. 5. Coronary artery atherosclerosis. This exam was performed according to our departmental dose-optimization program, which includes automated exposure control, adjustment of the mA and/or kV according to patient size and/or use of iterative reconstruction technique. Assessment and Plan - Diagnosis (1) Abdominal pain Qualifiers: Abdominal location: generalized Qualified Code(s): R10.84 - Generalized abdominal pain Is this a current diagnosis for this admission?: Yes (2) Lung cancer, primary, with metastasis from lung to other site Qualifiers: Laterality: unspecified laterality Qualified Code(s): C34.90 - Malignant neoplasm of unspecified part of unspecified bronchus or lung Is this a current diagnosis for this admission?: No (3) Altered mental status Qualifiers: Altered mental status type: unspecified Qualified Code(s): R41.82 - Altered mental status, unspecified Is this a current diagnosis for this admission?: Yes (4) Fever Qualifiers: Fever type: unspecified Qualified Code(s): R50.9 - Fever, unspecified Is this a current diagnosis for this admission?: Yes (6) Protein-energy malnutrition Qualifiers: Protein-calorie malnutrition severity: moderate Qualified Code(s): E44.0 - Moderate protein-calorie malnutrition Is this a current diagnosis for this admission?: Yes - Plan Summary Summary: 01/31/[id number]-gwzd-old female with history of COPD not on home oxygen, lung cancer with mets to the liver, gout, chronic smoker, diabetes mellitus type 2 admitted for altered mental status CT head was negative in the emergency room. CT abdominal pelvis indicates possible enteritis. Family is given the history of foul-smelling diarrhea since yesterday and she was started on IV levofloxacin 500 mg daily and Flagyl 500 mg every 6 hours. Blood cultures urine cultures are requested. Family requesting for a DNR/DNI status. She is going to be admitted to the medical floor as inpatient. Palliative care consult was requested. GI prophylaxis DVT prophylaxis initiated. To place her on nicotine patch. Patient also found to be cachectic BMI is less than 22. Dietary consult will be requested. CT scan of the abdomen also shows possible mets to the liver. She was placed on insulin sliding scale before meals and at bedtime. Fall precautions are requested. She was also started on IV fluids normal saline at 75 cc/h. I am going to follow the patient on regular basis. Work-up will be requested. She has a Lau's catheter. 02/01/2019-no acute events in the last 24 hours. Patient able to eat breakfast without any problems. More alert more awake. No diarrhea is noticed. Palliative consult was requested. Patient CODE STATUS is DNR/DNI. Serum sodium is 132.7 hyponatremia most likely secondary to prerenal causes resolving. She is on normal saline at 75 cc/h. 02/02/2019-no acute events in the last 24 hours. Afebrile. Consultation with Dr. Sanchez will be requested today. Bone scan was requested. Patient CODE STATUS is DNR/DNI. Family is not interested in placement. They want to take her home once is stable. These are negative so far presently on IV Flagyl and levo floxacillin. Today's labs are pending. Hyponatremia is resolving. Overall prognosis is poor.
[2019-02-02] MEDS: OMEGA-3 ACID ETHYL ESTERS 1 GM CAPSULE PO SCH ×3 (08:59→16:00)
[2019-02-02] MEDS: CARVEDILOL 6.25 MG TABLET PO SCH ×2 (09:01→21:21)
[2019-02-02] MEDS: BUSPIRONE HCL 10 MG TABLET PO SCH ×2 (09:01→21:20)
[2019-02-02] MEDS: PAROXETINE HCL 20 MG TABLET PO SCH (09:01)
[2019-02-02] MEDS: FAMOTIDINE 20 MG TABLET PO SCH (09:01)
[2019-02-02] MEDS: NICOTINE 21 MG/24 HR PATCH.TD24 TD SCH (09:01)
[2019-02-02] MEDS ORDERED: (PENDING PHARMACY ID) (Paroxetine Hcl [Paxil] 30 MG) PO SCH (10:00)
[2019-02-02 10:47] LABS: ABSOLUTE BASOPHILS # (AUTO) 0.1 10^3/uL (0.0-0.2); ABSOLUTE EOSINOPHILS # (AUTO) 0.3 10^3/uL (0.0-0.6); ABSOLUTE LYMPHOCYTES (AUTO) 0.5 10^3/uL (0.5-4.7); ABSOLUTE MONOCYTES (AUTO) 0.6 10^3/uL (0.1-1.4); ABSOLUTE NEUT (AUTO) 4.7 10^3/uL (1.7-8.2); BASOPHILS % (AUTO) 0.8 % (0-2); EOSINOPHILS % (AUTO) 5.5 % (0-6); HEMATOCRIT 36.8 % (36.0-47.0); HEMOGLOBIN 12.3 g/dL (12.0-15.5); LYMPHOCYTES % (AUTO) 7.4 % (13-45); MEAN CORPUSCULAR HEMOGLOBIN 27.8 pg (27.0-33.4); MEAN CORPUSCULAR HGB CONC 33.4 g/dL (32.0-36.0); MEAN CORPUSCULAR VOLUME 83 fl (80-97); MONOCYTES % (AUTO) 10.5 % (3-13); PLATELET COUNT 103 10^3/uL (150-450); RED BLOOD COUNT 4.42 10^6/uL (3.72-5.28); RED CELL DISTRIBUTION WIDTH 16.1 % (11.5-14.0); SEGMENTED NEUTROPHILS % (AUTO) 75.8 % (42-78); TOTAL CELLS COUNTED % (AUTO) 100 %; WHITE BLOOD COUNT 6.2 10^3/uL (4.0-10.5)
[2019-02-02] MEDS: FLUTICASONE/UMECLIDIN/VILANTER 100-62.5-25 MCG/DOSE IH SCH (10:53)
[2019-02-02] MEDS: LEVOFLOXACIN 500 MG/D5W RTU 500 MG/100 ML RTUPB IV SCH (10:57)
[2019-02-02 11:04] LABS: ALBUMIN 2.7 g/dL (3.5-5.0); ALKALINE PHOSPHATASE 128 U/L (38-126); ANION GAP 5 (5-19); ASPARTATE AMINO TRANSFERASE 38 U/L (14-36); BILIRUBIN,DIRECT 0.5 mg/dL (0.0-0.4); BILIRUBIN,TOTAL 0.8 mg/dL (0.2-1.3); BLOOD UREA NITROGEN 15 mg/dL (7-20); CALCIUM 9.3 mg/dL (8.4-10.2); CARBON DIOXIDE 25 mmol/L (22-30); CHLORIDE 105 mmol/L (98-107); GLUCOSE 120 mg/dL (75-110); POTASSIUM 3.4 mmol/L (3.6-5.0); TOTAL PROTEIN 4.9 g/dL (6.3-8.2)
--- NOTE | 2019-02-02 14:19 | RADIOLOGY REPORT (SQ) ---
EXAM DESCRIPTION: NM WHOLE BODY BONE SCAN COMPLETED DATE/TIME: 02/02/2019 1:35 pm REASON FOR STUDY: lung cancer COMPARISON: CT abdomen 01/31/2019 chest x-ray 01/31/2019 CT head 01/31/2019 RADIONUCLIDE AND DOSE: 20 millicuries Tc99m HDP. The route of agent administration: Intravenous. ADDITIONAL DRUGS AND DOSES: None. TECHNIQUE: Routine delayed images at 3 hours post radionuclide injection acquired of the bony skelet on including anterior and posterior whole-body projections and additional focused images as needed. LIMITATIONS: None. FINDINGS: BONES: There appears to be degenerative uptake in the right shoulder and right knee. No a bnormal focal skeletal uptake is seen that is suggestive of metastatic disease. KIDNEYS: Symmetric excretion without obstruction. OTHER: No other significant finding. IMPRESSION: There is no evidence of metastatic disease to bone. COMMENT: Quality measure 147: Current bone scan is compared with any available plain radiographs, p rior bone scans, and CT/MRI. TECHNICAL DOCUMENTATION: JOB ID: [id number] [employer]- All Rights Reserved Reading location - IP/workstation name: [email or web address]
[2019-02-02] MEDS: ACETAMINOPHEN 325 MG TABLET PO PRN (17:57)
[2019-02-02] MEDS: OLANZAPINE 5 MG TABLET PO SCH (21:20)
[2019-02-03] MEDS: METRONIDAZOLE 500 MG/NS RTU 500 MG/100 ML RTUPB IV SCH ×2 (02:06→11:21)
[2019-02-03] MEDS: HEPARIN SOD (PORCINE) 5,000 UNIT/ML 1 ML VIAL SUBCUT SCH ×3 (05:06→22:03)
[2019-02-03] MEDS: LEVOTHYROXINE SODIUM 0.05 MG TABLET PO SCH (06:12)
[2019-02-03] MEDS: INSULIN REG, HUMAN 100 UNIT/ML 3 ML VIAL (PYX) SUBCUT SCH ×4 (07:59→22:03)
--- NOTE | 2019-02-03 09:33 | PDOC PROGRESS REPORT ---
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 As per the family members patient is complaining of nonspecific abdominal pain back pain since yesterday. No nausea no vomiting no constipation noticed foul-smelling diarrhea. Not on antibiotics recently. Went to see the patient in the emergency room son was at bedside he has the power of employee counselor and he requested to make her mom DNR/DNI. 02/01/[id number]-hieq-old female with history of lung cancer metastasis to the liver, COPD, chronic smoker, diabetes mellitus, gout admitted for altered mental status and possible colitis. CODE STATUS is DNR/DNI. Patient more alert more communicative but she is said she is in [place] now. Able to eat her breakfast without any problems today. No diarrhea was noticed since admission. Cultures are negative so far. 02/02/[id number]-lpqb-old female with history of lung cancer metastatic to stress to the liver, COPD chronic smoker with history of diabetes mellitus and gout admitted for altered mental status and possible colitis. No diarrhea was noticed cultures are negative. Presently on IV Flagyl and IV levo floxacillin. Consult Dr. Mesa for further management of the carcinoma. Bone scan was requested for today. No acute events in the last 24 hours. Afebrile. Family wants to take her home once she is stable. 02/03/[id number]-oqho-old female admitted for altered mental status resolving. No acute events in the last 24 hours. Afebrile. Patient has lung cancer with liver mets. Bone scan was done which was negative for metastasis. Reason For Visit: COLITIS Physical Exam Vital Signs: Temp Pulse Resp BP Pulse Ox 98.8 F 77 17 131/89 H 99 02/03/19 08:00 02/03/19 08:00 02/03/19 08:00 02/03/19 08:00 02/03/19 08:00 Intake & Output 02/02/19 02/03/19 02/04/19 06:59 06:59 06:59 Intake Total 1220 2518 Balance 1220 2518 Weight 55.1 kg 55.6 kg General appearance: PRESENT: no acute distress Head exam: PRESENT: atraumatic Eye exam: PRESENT: PERRLA Mouth exam: PRESENT: moist, tongue midline Teeth exam: PRESENT: poor dentation Neck exam: ABSENT: carotid bruit, JVD, lymphadenopathy, thyromegaly Respiratory exam: PRESENT: decreased breath sounds Cardiovascular exam: PRESENT: RRR. ABSENT: diastolic murmur, rubs, systolic murmur GI/Abdominal exam: PRESENT: normal bowel sounds, soft. ABSENT: distended, guarding, mass, organolmegaly, rebound, tenderness Rectal exam: PRESENT: deferred Extremities exam: PRESENT: full ROM. ABSENT: calf tenderness, clubbing, pedal edema Neurological exam: PRESENT: alert, awake, oriented to person, oriented to place, oriented to time, oriented to situation, CN II-XII grossly intact. ABSENT: motor sensory deficit Psychiatric exam: PRESENT: appropriate affect, normal mood. ABSENT: homicidal ideation, suicidal ideation Results Laboratory Results: 02/02/19 10:13 02/02/19 10:13 02/02/19 02/02/19 10:13 10:13 WBC 6.2 RBC 4.42 Hgb 12.3 Hct 36.8 MCV 83 MCH 27.8 MCHC 33.4 RDW 16.1 H Plt Count 103 L Seg Neutrophils % 75.8 Sodium 134.8 L Potassium 3.4 L Chloride 105 Carbon Dioxide 25 Anion Gap 5 BUN 15 Creatinine 0.73 Est GFR ( Amer) > 60 Glucose 120 H Calcium 9.3 Magnesium 1.6 Total Bilirubin 0.8 AST 38 H Alkaline Phosphatase 128 H Total Protein 4.9 L Albumin 2.7 L 01/31/19 04:35 Catheterized Urine Urine Culture - Final 3,000 col/ml 01/31/19 03:40 Troponin I 0.044 Impressions: Chest X-Ray 01/31/19 03:29 IMPRESSION: Cardiomegaly. Lungs are clear copyright 2010 [employer]- All Rights Reserved Head CT 01/31/19 03:29 IMPRESSION: 1. No acute intracranial abnormality by CT criteria. This exam was performed according to our departmental dose-optimization program, which includes automated exposure control, adjustment of the mA and/or kV according to patient size and/or use of iterative reconstruction technique. Abdomen/Pelvis CT 01/31/19 05:13 IMPRESSION: 1. Hypodensity involving the distal body and tail of the pancreas with mild haziness surrounding mesenteric vessels. These findings could be seen with pancreatitis. Correlation with serum lipase recommended. Alternatively, if lipase normal, these findings may be related nonspecific enteritis/mesenteritis of infectious or inflammatory etiology. 2. Multiple hypoenhancing hypodensities in the right hepatic lobe, the largest measuring 1.8 cm. These findings are concerning for metastatic disease. 3. Wedge-shaped peripheral hypodensities involving the spleen. These may represent remote infarctions. Apparently, other splenic lesion or metastatic disease may produce this appearance. 4. Incompletely evaluated multiple subsolid nodules in the left lung, largest measuring [address] of the chest recommended for complete characterization. 5. Coronary artery atherosclerosis. This exam was performed according to our departmental dose-optimization program, which includes automated exposure control, adjustment of the mA and/or kV according to patient size and/or use of iterative reconstruction technique. Body Scan Nuclear Medicine 02/02/19 00:00 IMPRESSION: There is no evidence of metastatic disease to bone. Assessment and Plan - Diagnosis (1) Abdominal pain Qualifiers: Abdominal location: generalized Qualified Code(s): R10.84 - Generalized abdominal pain Is this a current diagnosis for this admission?: Yes (2) Lung cancer, primary, with metastasis from lung to other site Qualifiers: Laterality: unspecified laterality Qualified Code(s): C34.90 - Malignant neoplasm of unspecified part of unspecified bronchus or lung Is this a current diagnosis for this admission?: No (3) Altered mental status Qualifiers: Altered mental status type: unspecified Qualified Code(s): R41.82 - Altered mental status, unspecified Is this a current diagnosis for this admission?: Yes (4) Fever Qualifiers: Fever type: unspecified Qualified Code(s): R50.9 - Fever, unspecified Is this a current diagnosis for this admission?: Yes (6) Protein-energy malnutrition Qualifiers: Protein-calorie malnutrition severity: moderate Qualified Code(s): E44.0 - Moderate protein-calorie malnutrition Is this a current diagnosis for this admission?: Yes - Plan Summary Summary: 01/31/[id number]-guov-old female with history of COPD not on home oxygen, lung cancer with mets to the liver, gout, chronic smoker, diabetes mellitus type 2 admitted for altered mental status CT head was negative in the emergency room. CT abdominal pelvis indicates possible enteritis. Family is given the history of foul-smelling diarrhea since yesterday and she was started on IV levofloxacin 500 mg daily and Flagyl 500 mg every 6 hours. Blood cultures urine cultures are requested. Family requesting for a DNR/DNI status. She is going to be admitted to the medical floor as inpatient. Palliative care consult was requested. GI prophylaxis DVT prophylaxis initiated. To place her on nicotine patch. Patient also found to be cachectic BMI is less than 22. Dietary consult will be requested. CT scan of the abdomen also shows possible mets to the liver. She was placed on insulin sliding scale before meals and at bedtime. Fall precautions are requested. She was also started on IV fluids normal saline at 75 cc/h. I am going to follow the patient on regular basis. Work-up will be requested. She has a Lau's catheter. 02/01/2019-no acute events in the last 24 hours. Patient able to eat breakfast without any problems. More alert more awake. No diarrhea is noticed. Palliative consult was requested. Patient CODE STATUS is DNR/DNI. Serum sodium is 132.7 hyponatremia most likely secondary to prerenal causes resolving. She is on normal saline at 75 cc/h. 02/02/2019-no acute events in the last 24 hours. Afebrile. Consultation with Dr. Sanchez will be requested today. Bone scan was requested. Patient CODE STATUS is DNR/DNI. Family is not interested in placement. They want to take her home once is stable. These are negative so far presently on IV Flagyl and levo floxacillin. Today's labs are pending. Hyponatremia is resolving. Overall prognosis is poor. 02/03/2019-no acute events in the last 24 hours. Afebrile. Bone scan was negative for metastasis. CODE STATUS is DNR/DNI. More alert more awake communicating well. Altered mental status resolving. Cultures are negative. Plan is to discontinue antibiotics from today. Patient CODE STATUS is DNR/DNI once the patient is stable family wants to take her back tomorrow as well. consultation with Dr. Dennison was requested.
[2019-02-03] MEDS: NICOTINE 21 MG/24 HR PATCH.TD24 TD SCH (10:08)
[2019-02-03] MEDS: CARVEDILOL 6.25 MG TABLET PO SCH ×2 (10:09→22:03)
[2019-02-03] MEDS: FAMOTIDINE 20 MG TABLET PO SCH (10:09)
[2019-02-03] MEDS: PAROXETINE HCL 20 MG TABLET PO SCH (10:09)
[2019-02-03] MEDS: BUSPIRONE HCL 10 MG TABLET PO SCH ×2 (10:09→22:03)
[2019-02-03] MEDS: OMEGA-3 ACID ETHYL ESTERS 1 GM CAPSULE PO SCH ×3 (10:09→18:07)
[2019-02-03] MEDS: FLUTICASONE/UMECLIDIN/VILANTER 100-62.5-25 MCG/DOSE IH SCH (10:11)
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
[2019-02-03 15:02] LABS: C DIFFICILE GDH NEGATIVE (NEGATIVE)
--- NOTE | 2019-02-03 15:47 | RADIOLOGY REPORT (SQ) ---
EXAM DESCRIPTION: CT CHEST WITH COMPLETED DATE/TIME: 02/03/2019 3:00 pm REASON FOR STUDY: lung cancer COMPARISON: None. TECHNIQUE: CT scan of the chest performed using helical scanning technique with dynamic intravenous contrast injection. Images reviewed with lung, soft tissue and bone windows. Reconstructed coronal and sagittal MPR and MIP images reviewed. All images stored on PACS. All CT scanners at this facility use dose modulation, iterative reconstruction, and/or weight based d osing when appropriate to reduce radiation dose to as low as reasonably achievable (ALARA). [facility]: Dose Right [facility]: CareDose [facility]: Dose Right [facility]: Teradose 4D [facility]: [employer] CONTRAST TYPE AND DOSE: contrast/concentration: Isovue 350.00 mg/ml; Total Contrast Delivered: 66.0 ml; Total Saline Delivered: 55.0 ml RENAL FUNCTION: BUN 15 creatinine 0.73. RADIATION DOSE: CT Rad equipment meets quality standard of care and radiation dose reduction techniq ues were employed. CTDIvol: 6.0 mGy. DLP: 205 mGy-cm. . LIMITATIONS: None. FINDINGS: LUNGS AND PLEURA: 8 mm spiculated nodule in the right upper lobe. 5 mm spiculated nodule in the lateral left upper lobe. There are additional smaller nodules scattered throughout both lungs , measuring up to 5 mm. Minimal left pleural effusion. HILAR AND MEDIASTINAL STRUCTURES: No identified masses or abnormal nodes. HEART AND VASCULAR STRUCTURES: No aneurysm or dissection. No central pulmonary emboli. No pericardi al effusion. HARDWARE: None in the chest. UPPER ABDOMEN: Ill-defined enhancing lesions in the liver. Indistinct thickening and low-attenuation of the pancreas. Ill-defined low-attenuation lesions in the spleen. Limited exam. THYROID AND OTHER SOFT TISSUES: No masses. No adenopathy. BONES: Chronic changes in the spine with chronic appearing wedge deformities. OTHER: No other significant finding. IMPRESSION: 1. MULTIPLE PULMONARY NODULES HIGHLY SUSPICIOUS FOR METASTASES. SPICULATED LESION IN THE RIGHT UPPER LOBE COULD REPRESENT A PRIMARY TUMOR VERSUS A METASTATIC LESION. SMALL LEFT PLEURAL EFFUSION. 2. ILL-DEFINED ENHANCING LESIONS IN THE LIVER HIGHLY SUSPICIOUS FOR METASTASES. INDISTINCT THICKENIN G AND LOW-ATTENUATION OF THE PANCREAS, NOT COMPLETELY IMAGED. LOW-ATTENUATION LESIONS IN THE SPLEEN COULD BE DUE TO SMALL SPLENIC INFARCTS VERSUS METASTASES. TECHNICAL DOCUMENTATION: JOB ID: [id number] Quality ID # [id number]: Final reports with documentation of one or more dose reduction techniques (e.g., Au tomated exposure control, adjustment of the mA and/or kV according to patient size, use of iterative reconstruction technique) 2010 [employer]- All Rights Reserved Reading location - IP/workstation name: [email or web address]
[2019-02-03] MEDS: ACETAMINOPHEN 325 MG TABLET PO PRN (18:08)
[2019-02-03] MEDS: OLANZAPINE 5 MG TABLET PO SCH (22:02)
[2019-02-04] MEDS: LEVOTHYROXINE SODIUM 0.05 MG TABLET PO SCH (06:09)
[2019-02-04] MEDS: HEPARIN SOD (PORCINE) 5,000 UNIT/ML 1 ML VIAL SUBCUT SCH ×3 (06:09→21:38)
[2019-02-04] MEDS: OMEGA-3 ACID ETHYL ESTERS 1 GM CAPSULE PO SCH ×3 (07:39→17:39)
[2019-02-04] MEDS: INSULIN REG, HUMAN 100 UNIT/ML 3 ML VIAL (PYX) SUBCUT SCH ×4 (07:39→21:38)
[2019-02-04] MEDS: BUSPIRONE HCL 10 MG TABLET PO SCH ×2 (09:56→21:38)
[2019-02-04] MEDS: FAMOTIDINE 20 MG TABLET PO SCH (09:56)
[2019-02-04] MEDS: CARVEDILOL 6.25 MG TABLET PO SCH ×2 (09:56→21:38)
[2019-02-04] MEDS: FLUTICASONE/UMECLIDIN/VILANTER 100-62.5-25 MCG/DOSE IH SCH (09:57)
[2019-02-04] MEDS: NICOTINE 21 MG/24 HR PATCH.TD24 TD SCH (09:57)
[2019-02-04] MEDS: PAROXETINE HCL 20 MG TABLET PO SCH (10:00)
--- NOTE | 2019-02-04 10:51 | PDOC PROGRESS REPORT ---
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 As per the family members patient is complaining of nonspecific abdominal pain back pain since yesterday. No nausea no vomiting no constipation noticed foul-smelling diarrhea. Not on antibiotics recently. Went to see the patient in the emergency room son was at bedside he has the power of stacker tender and he requested to make her mom DNR/DNI. 02/01/[id number]-wmnn-old female with history of lung cancer metastasis to the [facility] er, COPD, chronic smoker, diabetes mellitus, gout admitted for altered mental status and possible colitis. CODE STATUS is DNR/DNI. Patient more alert more communicative but she is said she is in [place] now. Able to eat her breakfast without any problems today. No diarrhea was noticed since admission. Cultures are negative so far. 02/02/[id number]-lsgv-old female with history of lung cancer metastatic to stress to the liver, COPD chronic smoker with history of diabetes mellitus and gout ad mitted for altered mental status and possible colitis. No diarrhea was noticed cultures are negative. Presently on IV Flagyl and IV levo floxacillin. Consult Dr. Mesa for further management of the carcinoma. Bone scan was requested for today. No acute events in the last 24 hours. Afebrile. Family wants to take her home once she is stable. 02/03/[id number]-pyor-old female admitted for altered mental status resolving. No acute events in the last 24 hours. Afebrile. Patient has lung cancer with liver mets. Bone scan was done which was negative for metastasis. 02/04/[id number]-ndjz-old female admitted for altered mental status CT of the chest shows multiple pulmonary nodules consultation with Dr. Dennison was done his recommendation is to do the liver biopsy for possible mets to the liver. We do not have the primary source of the cancer. No acute events in the last 24 hours. Afebrile. Reason For Visit: COLITIS Physical Exam Vital Signs: Temp Pulse Resp BP Pulse Ox 98.7 F 85 19 197/76 H 100 02/04/19 08:04 02/04/19 08:04 02/04/19 08:04 02/04/19 08:04 02/04/19 08:04 Intake & Output 02/03/19 02/04/19 02/05/19 06:59 06:59 06:59 Intake Total 2518 480 Output Total 200 Balance 2518 280 Weight 55.6 kg 54.9 kg General appearance: PRESENT: no acute distress, thin Head exam: PRESENT: atraumatic Eye exam: PRESENT: PERRLA Mouth exam: PRESENT: moist, tongue midline Teeth exam: PRESENT: poor dentation Respiratory exam: PRESENT: decreased breath sounds Cardiovascular exam: PRESENT: RRR. ABSENT: diastolic murmur, rubs, systolic murmur GI/Abdominal exam: PRESENT: normal bowel sounds, soft. ABSENT: distended, guarding, mass, organolmegaly, rebound, tenderness Rectal exam: PRESENT: deferred Extremities exam: PRESENT: full ROM. ABSENT: calf tenderness, clubbing, pedal edema Neurological exam: PRESENT: alert, awake, CN II-XII grossly intact Psychiatric exam: PRESENT: appropriate affect, normal mood. ABSENT: homicidal ideation, suicidal ideation Results Laboratory Results: 02/02/19 10:13 02/02/19 10:13 01/31/19 03:40 Troponin I 0.044 Impressions: Chest X-Ray 01/31/19 03:29 IMPRESSION: Cardiomegaly. Lungs are clear copyright 2011 [employer]- All Rights Reserved Head CT 01/31/19 03:29 IMPRESSION: 1. No acute intracranial abnormality by CT criteria. This exam was performed according to our departmental dose-optimization program, which includes automated exposure control, adjustment of the mA and/or kV according to patient size and/or use of iterative reconstruction technique. Abdomen/Pelvis CT 01/31/19 05:13 IMPRESSION: 1. Hypodensity involving the distal body and tail of the pancreas with mild haziness surrounding mesenteric vessels. These findings could be seen with pancreatitis. Correlation with serum lipase recommended. Alternatively, if lipase normal, these findings may be related nonspecific enteritis/mesenteritis of infectious or inflammatory etiology. 2. Multiple hypoenhancing hypodensities in the right hepatic lobe, the largest measuring 1.8 cm. These findings are concerning for metastatic disease. 3. Wedge-shaped peripheral hypodensities involving the spleen. These may represent remote infarctions. Apparently, other splenic lesion or metastatic disease may produce this appearance. 4. Incompletely evaluated multiple subsolid nodules in the left lung, largest measuring [address] of the chest recommended for complete characterization. 5. Coronary artery atherosclerosis. This exam was performed according to our departmental dose-optimization program, which includes automated exposure control, adjustment of the mA and/or kV according to patient size and/or use of iterative reconstruction technique. Body Scan Nuclear Medicine 02/02/19 00:00 IMPRESSION: There is no evidence of metastatic disease to bone. Chest CT 02/03/19 12:15 IMPRESSION: 1. MULTIPLE PULMONARY NODULES HIGHLY SUSPICIOUS FOR METASTASES. SPICULATED LESION IN THE RIGHT UPPER LOBE COULD REPRESENT A PRIMARY TUMOR VERSUS A METASTATIC LESION. SMALL LEFT PLEURAL EFFUSION. 2. ILL-DEFINED ENHANCING LESIONS IN THE LIVER HIGHLY SUSPICIOUS FOR METASTASES. INDISTINCT THICKENING AND LOW-ATTENUATION OF THE PANCREAS, NOT COMPLETELY IMAGED. LOW-ATTENUATION LESIONS IN THE SPLEEN COULD BE DUE TO SMALL SPLENIC INFARCTS VERSUS METASTASES. Assessment and Plan - Diagnosis (1) Abdominal pain Qualifiers: Abdominal location: generalized Qualified Code(s): R10.84 - Generalized abdominal pain Is this a current diagnosis for this admission?: Yes (2) Lung cancer, primary, with metastasis from lung to other site Qualifiers: Laterality: left Qualified Code(s): C34.92 - Malignant neoplasm of unspecified part of left bronchus or lung Is this a current diagnosis for this admission?: Yes (3) Altered mental status Qualifiers: Altered mental status type: unspecified Qualified Code(s): R41.82 - Altered mental status, unspecified Is this a current diagnosis for this admission?: Yes (4) Fever Qualifiers: Fever type: unspecified Qualified Code(s): R50.9 - Fever, unspecified Is this a current diagnosis for this admission?: Yes (6) Protein-energy malnutrition Qualifiers: Protein-calorie malnutrition severity: moderate Qualified Code(s): E44.0 - Moderate protein-calorie malnutrition Is this a current diagnosis for this admission?: Yes - Plan Summary Summary: 01/31/[id number]-bfvd-old female with history of COPD not on home oxygen, lung cancer with mets to the liver, gout, chronic smoker, diabetes mellitus type 2 admitted for altered mental status CT head was negative in the emergency room. CT abdominal pelvis indicates possible enteritis. Family is given the history of foul-smelling diarrhea since yesterday and she was started on IV levofloxacin 500 mg daily and Flagyl 500 mg every 6 hours. Blood cultures urine cultures are requested. Family requesting for a DNR/DNI status. She is going to be admitted to the medical floor as inpatient. Palliative care consult was requested. GI prophylaxis DVT prophylaxis initiated. To place her on nicotine patch. Patient also found to be cachectic BMI is less than 22. Dietary consult will be requested. CT scan of the abdomen also shows possible mets to the liver. She was placed on insulin sliding scale before meals and at bedtime. Fall precautions are requested. She was also started on IV fluids normal saline at 75 cc/h. I am going to follow the patient on regular basis. Work-up will be requested. She has a Lau's catheter. 02/01/2019-no acute events in the last 24 hours. Patient able to eat breakfast without any problems. More alert more awake. No diarrhea is noticed. Palliative consult was requested. Patient CODE STATUS is DNR/DNI. Serum sodium is 132.7 hyponatremia most likely secondary to prerenal causes resolving. She is on normal saline at 75 cc/h. 02/02/2019-no acute events in the last 24 hours. Afebrile. Consultation with Dr. Sanchez will be requested today. Bone scan was requested. Patient CODE STATUS is DNR/DNI. Family is not interested in placement. They want to take her home once is stable. These are negative so far presently on IV Flagyl and levo floxacillin. Today's labs are pending. Hyponatremia is resolving. Overall prognosis is poor. 02/03/2019-no acute events in the last 24 hours. Afebrile. Bone scan was negative for metastasis. CODE STATUS is DNR/DNI. More alert more awake communicating well. Altered mental status resolving. Cultures are negative. Plan is to discontinue antibiotics from today. Patient CODE STATUS is DNR/DNI once the patient is stable family wants to take her back tomorrow as well. consultation with Dr. Dennison was requested. 09/2018-patient is scheduled for a liver biopsy tomorrow as per Dr. Dennison. No acute events in the last [address] chest shows multiple nodules suspicious for malignancy. We do not have the primary source of cancer. Possible mets to the liver. Patient CODE STATUS DNR/DNI. Overall prognosis poor
[2019-02-04] MEDS: HYDRALAZINE HCL INJ/PF 20 MG/1 ML SDV IV PRN (16:20)
[2019-02-04] MEDS: OXYCODONE HCL IR 5 MG TABLET PO PRN (16:27)
[2019-02-04] MEDS: OLANZAPINE 5 MG TABLET PO SCH (21:37)
[2019-02-05] MEDS: HEPARIN SOD (PORCINE) 5,000 UNIT/ML 1 ML VIAL SUBCUT SCH ×3 (06:45→21:38)
[2019-02-05] MEDS: LEVOTHYROXINE SODIUM 0.05 MG TABLET PO SCH (06:45)
[2019-02-05] MEDS: NORMAL SALINE 1000 ML 1,000 ML IV PRN (08:26)
[2019-02-05] MEDS: INSULIN REG, HUMAN 100 UNIT/ML 3 ML VIAL (PYX) SUBCUT SCH ×4 (08:30→21:39)
[2019-02-05] MEDS: OMEGA-3 ACID ETHYL ESTERS 1 GM CAPSULE PO SCH ×3 (08:34→17:34)
[2019-02-05] MEDS: HYDRALAZINE HCL INJ/PF 20 MG/1 ML SDV IV PRN (09:18)
[2019-02-05] MEDS: BUSPIRONE HCL 10 MG TABLET PO SCH ×2 (09:18→21:44)
[2019-02-05] MEDS: CARVEDILOL 6.25 MG TABLET PO SCH ×2 (09:18→21:44)
[2019-02-05] MEDS: FAMOTIDINE 20 MG TABLET PO SCH (09:18)
[2019-02-05] MEDS: NICOTINE 21 MG/24 HR PATCH.TD24 TD SCH (09:19)
[2019-02-05] MEDS: PAROXETINE HCL 20 MG TABLET PO SCH (09:23)
[2019-02-05] MEDS: FLUTICASONE/UMECLIDIN/VILANTER 100-62.5-25 MCG/DOSE IH SCH (09:24)
--- NOTE | 2019-02-05 10:03 | PDOC PROGRESS REPORT ---
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 As per the family members patient is complaining of nonspecific abdominal pain back pain since yesterday. No nausea no vomiting no constipation noticed foul-smelling diarrhea. Not on antibiotics recently. Went to see the patient in the emergency room son was at bedside he has the power of assistant attorney general and he requested to make her mom DNR/DNI. 02/01/[id number]-psjy-old female with history of lung cancer metastasis to the [facility] er, COPD, chronic smoker, diabetes mellitus, gout admitted for altered mental status and possible colitis. CODE STATUS is DNR/DNI. Patient more alert more communicative but she is said she is in [place] now. Able to eat her breakfast without any problems today. No diarrhea was noticed since admission. Cultures are negative so far. 02/02/[id number]-aepq-old female with history of lung cancer metastatic to stress to the liver, COPD chronic smoker with history of diabetes mellitus and gout ad mitted for altered mental status and possible colitis. No diarrhea was noticed cultures are negative. Presently on IV Flagyl and IV levo floxacillin. Consult Dr. Mesa for further management of the carcinoma. Bone scan was requested for today. No acute events in the last 24 hours. Afebrile. Family wants to take her home once she is stable. 02/03/[id number]-xjio-old female admitted for altered mental status resolving. No acute events in the last 24 hours. Afebrile. Patient has lung cancer with liver mets. Bone scan was done which was negative for metastasis. 02/04/[id number]-tews-old female admitted for altered mental status CT of the chest shows multiple pulmonary nodules consultation with Dr. Dennison was done his recommendation is to do the liver biopsy for possible mets to the liver. We do not have the primary source of the cancer. No acute events in the last 24 hours. Afebrile. 02/05/20193428-84-erqj-old female admitted for altered mental status which was resolved CT abdomen pelvis indicates metastatic lesions in the liver under CT chest indicates multiple nodules both sides she patient is going for liver biopsy today. Oncology on board today. Reason For Visit: COLITIS Physical Exam Vital Signs: Temp Pulse Resp BP Pulse Ox 97.9 F 90 18 178/77 H 98 02/05/19 08:00 02/05/19 08:00 02/05/19 08:00 02/05/19 08:00 02/05/19 08:00 Intake & Output 02/04/19 02/05/19 02/06/19 06:59 06:59 06:59 Intake Total 480 700 Output Total 200 Balance 280 700 Weight 54.9 kg 55.8 kg General appearance: PRESENT: no acute distress, thin Head exam: PRESENT: atraumatic Eye exam: PRESENT: PERRLA Mouth exam: PRESENT: moist, tongue midline Teeth exam: PRESENT: poor dentation Neck exam: ABSENT: carotid bruit, JVD, lymphadenopathy, thyromegaly Respiratory exam: PRESENT: decreased breath sounds Cardiovascular exam: PRESENT: RRR. ABSENT: diastolic murmur, rubs, systolic murmur GI/Abdominal exam: PRESENT: normal bowel sounds, soft. ABSENT: distended, guarding, mass, organolmegaly, rebound, tenderness Rectal exam: PRESENT: deferred Extremities exam: PRESENT: full ROM. ABSENT: calf tenderness, clubbing, pedal edema Neurological exam: PRESENT: alert, awake, oriented to person, oriented to place, oriented to time, oriented to situation, CN II-XII grossly intact. ABSENT: motor sensory deficit Psychiatric exam: PRESENT: appropriate affect, normal mood. ABSENT: homicidal ideation, suicidal ideation Results Laboratory Results: 02/02/19 10:13 02/02/19 10:13 01/31/19 06:45 Blood Blood Culture - Final NO GROWTH IN 5 DAYS 01/31/19 04:40 Blood Blood Culture - Final NO GROWTH IN 5 DAYS 01/31/19 03:40 Troponin I 0.044 Impressions: Chest X-Ray 01/31/19 03:29 IMPRESSION: Cardiomegaly. Lungs are clear copyright 2011 [employer]- All Rights Reserved Head CT 01/31/19 03:29 IMPRESSION: 1. No acute intracranial abnormality by CT criteria. This exam was performed according to our departmental dose-optimization program, which includes automated exposure control, adjustment of the mA and/or kV according to patient size and/or use of iterative reconstruction technique. Abdomen/Pelvis CT 01/31/19 05:13 IMPRESSION: 1. Hypodensity involving the distal body and tail of the pancreas with mild haziness surrounding mesenteric vessels. These findings could be seen with pancreatitis. Correlation with serum lipase recommended. Alternatively, if lipase normal, these findings may be related nonspecific enteritis/mesenteritis of infectious or inflammatory etiology. 2. Multiple hypoenhancing hypodensities in the right hepatic lobe, the largest measuring 1.8 cm. These findings are concerning for metastatic disease. 3. Wedge-shaped peripheral hypodensities involving the spleen. These may represent remote infarctions. Apparently, other splenic lesion or metastatic disease may produce this appearance. 4. Incompletely evaluated multiple subsolid nodules in the left lung, largest measuring [address] of the chest recommended for complete characterization. 5. Coronary artery atherosclerosis. This exam was performed according to our departmental dose-optimization program, which includes automated exposure control, adjustment of the mA and/or kV according to patient size and/or use of iterative reconstruction technique. Body Scan Nuclear Medicine 02/02/19 00:00 IMPRESSION: There is no evidence of metastatic disease to bone. Chest CT 02/03/19 12:15 IMPRESSION: 1. MULTIPLE PULMONARY NODULES HIGHLY SUSPICIOUS FOR METASTASES. SPICULATED LESION IN THE RIGHT UPPER LOBE COULD REPRESENT A PRIMARY TUMOR VERSUS A ME TASTATIC LESION. SMALL LEFT PLEURAL EFFUSION. 2. ILL-DEFINED ENHANCING LESIONS IN THE LIVER HIGHLY SUSPICIOUS FOR METASTASES. INDISTINCT THICKENING AND LOW-ATTENUATION OF THE PANCREAS, NOT COMPLETELY IMAGED. LOW-ATTENUATION LESIONS IN THE SPLEEN COULD BE DUE TO SMALL SPLENIC INFARCTS VERSUS METASTASES. Assessment and Plan - Diagnosis (1) Abdominal pain Qualifiers: Abdominal location: generalized Qualified Code(s): R10.84 - Generalized abdominal pain Is this a current diagnosis for this admission?: Yes (2) Lung cancer, primary, with metastasis from lung to other site Qualifiers: Laterality: left Qualified Code(s): C34.92 - Malignant neoplasm of unspecified part of left bronchus or lung Is this a current diagnosis for this admission?: Yes (3) Altered mental status Qualifiers: Altered mental status type: unspecified Qualified Code(s): R41.82 - Altered mental status, unspecified Is this a current diagnosis for this admission?: Yes (4) Fever Qualifiers: Fever type: unspecified Qualified Code(s): R50.9 - Fever, unspecified Is this a current diagnosis for this admission?: Yes (6) Protein-energy malnutrition Qualifiers: Protein-calorie malnutrition severity: moderate Qualified Code(s): E44.0 - Moderate protein-calorie malnutrition Is this a current diagnosis for this admission?: Yes - Plan Summary Summary: 01/31/20193535-09-kuuf-old female with history of COPD not on home oxygen, lung cancer with mets to the liver, gout, chronic smoker, diabetes mellitus type 2 admitted for altered mental status CT head was negative in the emergency room. CT abdominal pelvis indicates possible enteritis. Family is given the history of foul-smelling diarrhea since yesterday and she was started on IV levofloxacin 500 mg daily and Flagyl 500 mg every 6 hours. Blood cultures urine cultures are requested. Family requesting for a DNR/DNI status. She is going to be admitted to the medical floor as inpatient. Palliative care consult was requested. GI prophylaxis DVT prophylaxis initiated. To place her on nicotine patch. Patient also found to be cachectic BMI is less than 22. Dietary consult will be requested. CT scan of the abdomen also shows possible mets to the liver. She was placed on insulin sliding scale before meals and at bedtime. Fall precautions are requested. She was also started on IV fluids normal saline at 75 cc/h. I am going to follow the patient on regular basis. Work-up will be requested. She has a Lau's catheter. 02/01/2019-no acute events in the last 24 hours. Patient able to eat breakfast without any problems. More alert more awake. No diarrhea is noticed. Palliative consult was requested. Patient CODE STATUS is DNR/DNI. Serum sodium is 132.7 hyponatremia most likely secondary to prerenal causes resolving. She is on normal saline at 75 cc/h. 02/02/2019-no acute events in the last 24 hours. Afebrile. Consultation with Dr. Sanchez will be requested today. Bone scan was requested. Patient CODE STATUS is DNR/DNI. Family is not interested in placement. They want to take her home once is stable. These are negative so far presently on IV Flagyl and levo floxacillin. Today's labs are pending. Hyponatremia is resolving. Overall prognosis is poor. 02/03/2019-no acute events in the last 24 hours. Afebrile. Bone scan was negative for metastasis. CODE STATUS is DNR/DNI. More alert more awake communicating well. Altered mental status resolving. Cultures are negative. Plan is to discontinue antibiotics from today. Patient CODE STATUS is DNR/DNI once the patient is stable family wants to take her back tomorrow as well. consultation with Dr. Dennison was requested. 02/04/2019-patient is scheduled for a liver biopsy tomorrow as per Dr. Dennison. No acute events in the last [address] chest shows multiple nodules suspicious for malignancy. We do not have the primary source of cancer. Possible mets to the liver. Patient CODE STATUS DNR/DNI. Overall prognosis poor 02/05/2019-patient is going for liver biopsy today. No acute events in the last 24 hours. Afebrile. Pulse ox is 99% on room air. Patient CODE STATUS is DNR/DNI. Family wants to take her home once is stable to live [facility]
[2019-02-05] MEDS: ALBUTEROL SULFATE HFA (90 MCG/PUFF) 200 PUFF/8.5 GM MDI IH PRN (16:14)
[2019-02-05] MEDS: ALPRAZOLAM 0.5 MG TABLET PO PRN (20:05)
[2019-02-05] MEDS: OLANZAPINE 5 MG TABLET PO SCH (21:44)
[2019-02-06] MEDS: OXYCODONE HCL IR 5 MG TABLET PO PRN (04:16)
[2019-02-06] MEDS: HEPARIN SOD (PORCINE) 5,000 UNIT/ML 1 ML VIAL SUBCUT SCH ×3 (05:29→21:30)
[2019-02-06] MEDS: NORMAL SALINE 1000 ML 1,000 ML IV PRN (05:31)
[2019-02-06] MEDS: LEVOTHYROXINE SODIUM 0.05 MG TABLET PO SCH (05:31)
[2019-02-06 07:02] LABS: ABSOLUTE EOSINOPHILS # (AUTO) 0.5 10^3/uL (0.0-0.6); ABSOLUTE LYMPHOCYTES (AUTO) 0.6 10^3/uL (0.5-4.7); ABSOLUTE MONOCYTES (AUTO) 0.7 10^3/uL (0.1-1.4); ABSOLUTE NEUT (AUTO) 6.5 10^3/uL (1.7-8.2); BASOPHILS % (AUTO) 0.5 % (0-2); EOSINOPHILS % (AUTO) 5.4 % (0-6); HEMATOCRIT 36.2 % (36.0-47.0); HEMOGLOBIN 12.2 g/dL (12.0-15.5); LYMPHOCYTES % (AUTO) 6.7 % (13-45); MEAN CORPUSCULAR HEMOGLOBIN 27.8 pg (27.0-33.4); MEAN CORPUSCULAR HGB CONC 33.6 g/dL (32.0-36.0); MEAN CORPUSCULAR VOLUME 83 fl (80-97); PLATELET COUNT 113 10^3/uL (150-450); RED BLOOD COUNT 4.38 10^6/uL (3.72-5.28); RED CELL DISTRIBUTION WIDTH 16.3 % (11.5-14.0); SEGMENTED NEUTROPHILS % (AUTO) 78.4 % (42-78); TOTAL CELLS COUNTED % (AUTO) 100 %; WHITE BLOOD COUNT 8.3 10^3/uL (4.0-10.5)
[2019-02-06 07:03] LABS: INTERNATIONAL RATION (INR) 1.07
[2019-02-06 07:04] LABS: PARTIAL THROMBOPLASTIN TIME 29.5 SEC (23.5-35.8)
[2019-02-06 07:26] LABS: ALBUMIN 2.6 g/dL (3.5-5.0); ALKALINE PHOSPHATASE 96 U/L (38-126); ASPARTATE AMINO TRANSFERASE 32 U/L (14-36); BILIRUBIN,DIRECT 0.1 mg/dL (0.0-0.4); BILIRUBIN,TOTAL 0.4 mg/dL (0.2-1.3); BLOOD UREA NITROGEN 10 mg/dL (7-20); CALCIUM 9.3 mg/dL (8.4-10.2); GLUCOSE 165 mg/dL (75-110); POTASSIUM 3.8 mmol/L (3.6-5.0); TOTAL PROTEIN 4.6 g/dL (6.3-8.2)
[2019-02-06 07:31] LABS: CARBON DIOXIDE 31 mmol/L (22-30); CHLORIDE 97 mmol/L (98-107)
[2019-02-06 07:36] LABS: ANION GAP 4 (5-19)
[2019-02-06] MEDS: OMEGA-3 ACID ETHYL ESTERS 1 GM CAPSULE PO SCH ×3 (08:13→19:00)
[2019-02-06] MEDS: INSULIN REG, HUMAN 100 UNIT/ML 3 ML VIAL (PYX) SUBCUT SCH ×4 (08:13→21:30)
--- NOTE | 2019-02-06 08:31 | PDOC PROGRESS REPORT ---
Subjective Progress Note for:: 02/06/19 Subjective:: Patient is slowly getting back to baseline terms of her mental status, still has periods of confusion and incontinence but I think this was, at home as well. She is planned for liver biopsy today, radiology could not do it yesterday because they felt that interventional radiology needed to do it Reason For Visit: COLITIS Physical Exam Vital Signs: Temp Pulse Resp BP Pulse Ox 98.1 F 85 15 136/75 H 100 02/05/19 23:29 02/05/19 23:29 02/05/19 23:29 02/05/19 23:29 02/05/19 23:29 Intake & Output 02/05/19 02/06/19 02/07/19 06:59 06:59 06:59 Intake Total 700 2097 Balance 700 2097 Weight 55.8 kg 54.7 kg General appearance: PRESENT: no acute distress, well-developed, well-nourished Head exam: PRESENT: atraumatic, normocephalic Eye exam: PRESENT: conjunctiva pink, EOMI, PERRLA. ABSENT: scleral icterus Ear exam: PRESENT: normal external ear exam Mouth exam: PRESENT: moist, tongue midline Neck exam: ABSENT: carotid bruit, JVD, lymphadenopathy, thyromegaly Respiratory exam: PRESENT: clear to auscultation joshua. ABSENT: rales, rhonchi, wheezes Cardiovascular exam: PRESENT: RRR. ABSENT: diastolic murmur, rubs, systolic murmur Pulses: PRESENT: normal dorsalis pedis pul Vascular exam: PRESENT: normal capillary refill GI/Abdominal exam: PRESENT: normal bowel sounds, soft. ABSENT: distended, guarding, mass, organolmegaly, rebound, tenderness Rectal exam: PRESENT: deferred Extremities exam: PRESENT: full ROM. ABSENT: calf tenderness, clubbing, pedal edema Neurological exam: PRESENT: alert, awake, oriented to person, oriented to place, oriented to time, oriented to situation, CN II-XII grossly intact. ABSENT: motor sensory deficit Psychiatric exam: PRESENT: appropriate affect, normal mood. ABSENT: homicidal ideation, suicidal ideation Skin exam: PRESENT: dry, intact, warm. ABSENT: cyanosis, rash Results Laboratory Results: 02/06/19 05:18 02/06/19 05:18 02/06/19 02/06/19 05:18 05:18 WBC 8.3 RBC 4.38 Hgb 12.2 Hct 36.2 MCV 83 MCH 27.8 MCHC 33.6 RDW 16.3 H Plt Count 113 L Seg Neutrophils % 78.4 H Sodium 132.2 L Potassium 3.8 Chloride 97 L Carbon Dioxide 31 H Anion Gap 4 L BUN 10 Creatinine 0.71 Est GFR ( Amer) > 60 Glucose 165 H Calcium 9.3 Magnesium 1.6 Total Bilirubin 0.4 AST 32 Alkaline Phosphatase 96 Total Protein 4.6 L Albumin 2.6 L 01/31/19 06:45 Blood Blood Culture - Final NO GROWTH IN 5 DAYS 01/31/19 04:40 Blood Blood Culture - Final NO GROWTH IN 5 DAYS 01/31/19 03:40 Troponin I 0.044 Impressions: Chest X-Ray 01/31/19 03:29 IMPRESSION: Cardiomegaly. Lungs are clear copyright 2010 [employer]- All Rights Reserved Head CT 01/31/19 03:29 IMPRESSION: 1. No acute intracranial abnormality by CT criteria. This exam was performed according to our departmental dose-optimization program, which includes automated exposure control, adjustment of the mA and/or kV according to patient size and/or use of iterative reconstruction technique. Abdomen/Pelvis CT 01/31/19 05:13 IMPRESSION: 1. Hypodensity involving the distal body and tail of the pancreas with mild haziness surrounding mesenteric vessels. These findings could be seen with pancreatitis. Correlation with serum lipase recommended. Alternatively, if lipase normal, these findings may be related nonspecific enteritis/mesenteritis of infectious or inflammatory etiology. 2. Multiple hypoenhancing hypodensities in the right hepatic lobe, the largest measuring 1.8 cm. These findings are concerning for metastatic disease. 3. Wedge-shaped peripheral hypodensities involving the spleen. These may represent remote infarctions. Apparently, other splenic lesion or metastatic disease may produce this appearance. 4. Incompletely evaluated multiple subsolid nodules in the left lung, largest measuring [address] of the chest recommended for complete characterization. 5. Coronary artery atherosclerosis. This exam was performed according to our departmental dose-optimization program, which includes automated exposure control, adjustment of the mA and/or kV according to patient size and/or use of iterative reconstruction technique. Body Scan Nuclear Medicine 02/02/19 00:00 IMPRESSION: There is no evidence of metastatic disease to bone. Chest CT 02/03/19 12:15 IMPRESSION: 1. MULTIPLE PULMONARY NODULES HIGHLY SUSPICIOUS FOR METASTASES. SPICULATED LESION IN THE RIGHT UPPER LOBE COULD REPRESENT A PRIMARY TUMOR VERSUS A METASTATIC LESION. SMALL LEFT PLEURAL EFFUSION. 2. ILL-DEFINED ENHANCING LESIONS IN THE LIVER HIGHLY SUSPICIOUS FOR METASTASES. INDISTINCT THICKENING AND LOW-ATTENUATION OF THE PANCREAS, NOT COMPLETELY IMAGED. LOW-ATTENUATION LESIONS IN THE SPLEEN COULD BE DUE TO SMALL SPLENIC INFARCTS VERSUS METASTASES. Assessment & Plan - Diagnosis (1) Lung cancer, primary, with metastasis from lung to other site Qualifiers: Laterality: left Qualified Code(s): C34.92 - Malignant neoplasm of unspecified part of left bronchus or lung Is this a current diagnosis for this admission?: Yes Plan: Plan for liver biopsy, await results - Time Time Spent with patient: 35 or more minutes
[2019-02-06] MEDS: NICOTINE 21 MG/24 HR PATCH.TD24 TD SCH (11:11)
[2019-02-06] MEDS: BUSPIRONE HCL 10 MG TABLET PO SCH ×2 (11:12→21:29)
[2019-02-06] MEDS: PAROXETINE HCL 20 MG TABLET PO SCH (11:12)
[2019-02-06] MEDS: CARVEDILOL 6.25 MG TABLET PO SCH ×2 (11:12→21:29)
[2019-02-06] MEDS: FLUTICASONE/UMECLIDIN/VILANTER 100-62.5-25 MCG/DOSE IH SCH (11:13)
[2019-02-06] MEDS: FAMOTIDINE 20 MG TABLET PO SCH (11:13)
[2019-02-06] MEDS ORDERED: MIDAZOLAM 2 MG/2 ML INJ ONE (13:57)
[2019-02-06] MEDS ORDERED: FENTANYL CITRATE INJ/PF 100 MCG/2 ML AMPUL ONE (13:57)
[2019-02-06] MEDS: ALBUTEROL SULFATE HFA (90 MCG/PUFF) 200 PUFF/8.5 GM MDI IH PRN (15:13)
--- NOTE | 2019-02-06 15:53 | RADIOLOGY REPORT (SQ) ---
EXAM DESCRIPTION: CT ABDOMEN NO ORAL OR IV COMPLETED DATE/TIME: 02/06/2019 2:30 pm REASON FOR STUDY: liver mets,lung cancer COMPARISON: CT of the abdomen and pelvis with contrast from 01/31/2019. TECHNIQUE: The procedure, risks, benefits, and alternatives were discussed with the patient in the p reprocedural area, and all questions were answered. Informed consent was obtained verbally and in wri ting. The patient was then brought to the CT suite, positioned supine on the CT gurney, and a time-out was performed. After that, axial images of the abdomen were obtained for targeting of the hypodense lesi ons upper right hepatic lobe. Based on review of the axial images an appropriate access site was fannie ected on the right upper quadrant. In anticipation for the biopsy 1 mg of Versed at and 50 mcg of fentanyl were administered intravenous ly for moderate sedation. The area around selected access site was then prepped and draped 2% chlorhe xidine utilizing standard sterile technique. After that, the access site was infiltrated with 1% lid ocaine with a 21 gauge needle. The needle was then left in place and a fluoroscopic images of the up per abdomen were obtained to evaluate the trajectory of the needle. At this time I was informed by t he nurse that the patient's blood pressure had dropped 53/51 mmHg. The patient was brought out of e scan air and IV fluids were started ; in addition, 0.5 mg of Narcan IV were administered. After t hese interventions the patient's level of alertness improved and the blood pressure returned to the p reprocedural baseline. The above was discussed with the referring physician and it was decided to abort the procedure. IV conscious sedation was administered at the direction of the performing physician by a sid troncoso. 2 milligrams of Versed and 50 micrograms of fentanyl were administered. Physiologic monitoring was provided before, during, and after sedation. The total sedation time was 2 5 minutes. Documentation of avyh-mg-nphl time the performing proceduralist spent monitoring the patient: 15 blayne kirsten. Fluoroscopy Time: 4.[address] scanners at this facility use dose modulation, iterative reconstruction, and/or weight based d osing when appropriate to reduce radiation dose to as low as reasonably achievable (ALARA). [facility]: Dose Right [facility]: CareDose [facility]: Dose Right [facility]: Teradose 4D [facility]: [employer] RADIATION DOSE: CT Rad equipment meets quality standard of care and radiation dose reduction techni ques were employed. CTDIvol: 4.0 - 19.2 mGy. DLP: 470 mGy-cm. FINDINGS: Integrated into the Technique. IMPRESSION: Aborted CT-guided biopsy of the hypodense hepatic lesions due to patient's inability to tolerate moderate sedation. COMMENT: Quality ID [id number]: Final reports for procedures using fluoroscopy that document radiation exp osure indices, or exposure time and number of fluorographic images (if radiation exposure indices are not available) Patient medication list reviewed: Yes- Quality ID# [id number]:Eligible professional attests to documenting i n the medical record they obtained, updated, or reviewed the patient's current medications.. TECHNICAL DOCUMENTATION: JOB ID: [id number] Quality ID# [id number]: Final reports with documentation of one or more dose reduction techniques (e.g., Aut omated exposure control, adjustment of the mA and/or kV according to patient size, use of iterative r econstruction technique) 2010 [employer]- All Rights Reserved Reading location - IP/workstation name: [email or web address]
--- NOTE | 2019-02-06 16:22 | PDOC PROGRESS REPORT ---
Subjective Progress Note for:: 02/06/19 Subjective:: No acute event overnight. Denies abdominal pain. No chest pain or shortness of breath. She is going for a liver biopsy today. Reason For Visit: COLITIS Physical Exam Vital Signs: Temp Pulse Resp BP Pulse Ox 97.6 F 87 16 134/82 H 99 02/06/19 08:00 02/06/19 11:19 02/06/19 11:19 02/06/19 11:19 02/06/19 08:00 Intake & Output 02/05/19 02/06/19 02/07/19 06:59 06:59 06:59 Intake Total 700 2097 Balance 700 2097 Weight 123 lb 0.287 oz 120 lb 9.486 oz General appearance: PRESENT: no acute distress, well-developed, well-nourished Head exam: PRESENT: atraumatic, normocephalic Eye exam: PRESENT: conjunctiva pink, EOMI, PERRLA. ABSENT: scleral icterus Ear exam: PRESENT: normal external ear exam Mouth exam: PRESENT: moist, tongue midline Neck exam: ABSENT: carotid bruit, JVD, lymphadenopathy, thyromegaly Respiratory exam: PRESENT: clear to auscultation joshua. ABSENT: rales, rhonchi, wheezes Cardiovascular exam: PRESENT: RRR. ABSENT: diastolic murmur, rubs, systolic murmur Pulses: PRESENT: normal dorsalis pedis pul GI/Abdominal exam: PRESENT: normal bowel sounds, soft. ABSENT: distended, guarding, mass, organolmegaly, rebound, tenderness Rectal exam: PRESENT: deferred Extremities exam: PRESENT: full ROM. ABSENT: calf tenderness, clubbing, pedal edema Neurological exam: PRESENT: awake, oriented to person, CN II-XII grossly intact. ABSENT: motor sensory deficit Results Laboratory Results: 02/06/19 05:18 02/06/19 05:18 02/06/19 02/06/19 05:18 05:18 WBC 8.3 RBC 4.38 Hgb 12.2 Hct 36.2 MCV 83 MCH 27.8 MCHC 33.6 RDW 16.3 H Plt Count 113 L Seg Neutrophils % 78.4 H Sodium 132.2 L Potassium 3.8 Chloride 97 L Carbon Dioxide 31 H Anion Gap 4 L BUN 10 Creatinine 0.71 Est GFR ( Amer) > 60 Glucose 165 H Calcium 9.3 Magnesium 1.6 Total Bilirubin 0.4 AST 32 Alkaline Phosphatase 96 Total Protein 4.6 L Albumin 2.6 L 01/31/19 03:40 Troponin I 0.044 Impressions: Chest X-Ray 01/31/19 03:29 IMPRESSION: Cardiomegaly. Lungs are clear copyright 2010 [employer]- All Rights Reserved Head CT 01/31/19 03:29 IMPRESSION: 1. No acute intracranial abnormality by CT criteria. This exam was performed according to our departmental dose-optimization program, which includes automated exposure control, adjustment of the mA and/or kV according to patient size and/or use of iterative reconstruction technique. Abdomen/Pelvis CT 01/31/19 05:13 IMPRESSION: 1. Hypodensity involving the distal body and tail of the pancreas with mild haziness surrounding mesenteric vessels. These findings could be seen with pancreatitis. Correlation with serum lipase recommended. Alternatively, if lipase normal, these findings may be related nonspecific enteritis/mesenteritis of infectious or inflammatory etiology. 2. Multiple hypoenhancing hypodensities in the right hepatic lobe, the largest measuring 1.8 cm. These findings are concerning for metastatic disease. 3. Wedge-shaped peripheral hypodensities involving the spleen. These may represent remote infarctions. Apparently, other splenic lesion or metastatic disease may produce this appearance. 4. Incompletely evaluated multiple subsolid nodules in the left lung, largest measuring [address] of the chest recommended for complete characterization. 5. Coronary artery atherosclerosis. This exam was performed according to our departmental dose-optimization program, which includes automated exposure control, adjustment of the mA and/or kV according to patient size and/or use of iterative reconstruction technique. Body Scan Nuclear Medicine 02/02/19 00:00 IMPRESSION: There is no evidence of metastatic disease to bone. Chest CT 02/03/19 12:15 IMPRESSION: 1. MULTIPLE PULMONARY NODULES HIGHLY SUSPICIOUS FOR METASTASES. SPICULATED LESION IN THE RIGHT UPPER LOBE COULD REPRESENT A PRIMARY TUMOR VERSUS A METASTATIC LESION. SMALL LEFT PLEURAL EFFUSION. 2. ILL-DEFINED ENHANCING LESIONS IN THE LIVER HIGHLY SUSPICIOUS FOR METASTASES. INDISTINCT THICKENING AND LOW-ATTENUATION OF THE PANCREAS, NOT COMPLETELY IMAGED. LOW-ATTENUATION LESIONS IN THE SPLEEN COULD BE DUE TO SMALL SPLENIC INFARCTS VERSUS METASTASES. Assessment and Plan - Diagnosis (1) Lung cancer, primary, with metastasis from lung to other site Qualifiers: Laterality: left Qualified Code(s): C34.92 - Malignant neoplasm of unspecified part of left bronchus or lung Is this a current diagnosis for this admission?: Yes Plan: Oncology following. Patient is going for a liver biopsy today. (2) COPD (chronic obstructive pulmonary disease) Is this a current diagnosis for this admission?: Yes (3) DM type 2 (diabetes mellitus, type 2) Is this a current diagnosis for this admission?: Yes
[2019-02-06] MEDS: IPRATROPIUM/ALBUTEROL 0.5-2.5 MG/3 ML AMPUL NEB PRN ×2 (17:07→23:39)
[2019-02-06] MEDS: ALPRAZOLAM 0.5 MG TABLET PO PRN (21:29)
[2019-02-06] MEDS: OLANZAPINE 5 MG TABLET PO SCH (21:29)
[2019-02-07] MEDS: HEPARIN SOD (PORCINE) 5,000 UNIT/ML 1 ML VIAL SUBCUT SCH ×3 (05:20→21:26)
[2019-02-07] MEDS: LEVOTHYROXINE SODIUM 0.05 MG TABLET PO SCH (05:23)
[2019-02-07] MEDS: OMEGA-3 ACID ETHYL ESTERS 1 GM CAPSULE PO SCH ×3 (08:12→18:11)
[2019-02-07] MEDS: INSULIN REG, HUMAN 100 UNIT/ML 3 ML VIAL (PYX) SUBCUT SCH ×4 (08:12→21:26)
--- NOTE | 2019-02-07 08:16 | PDOC PROGRESS REPORT ---
Subjective Progress Note for:: 02/07/19 Subjective:: Yesterday patient went down for liver biopsy and unfortunately blood pressure dropped very low, interventional radiology was unsure about procedure and called me, I told him to discontinue. This morning I spoke with the son and noted that biopsy would not be possible and that we need to consider home hospice. He is going to talk to [employer] regional economic liaison for discussion about this today. Reason For Visit: COLITIS Physical Exam Vital Signs: Temp Pulse Resp BP Pulse Ox 98.1 F 59 L 15 144/73 H 100 02/06/19 23:46 02/06/19 23:46 02/06/19 23:46 02/06/19 23:46 02/06/19 23:46 Intake & Output 02/06/19 02/07/19 02/08/19 06:59 06:59 06:59 Intake Total 2096 1200 Balance 2096 1200 Weight 54.7 kg 55.3 kg General appearance: PRESENT: no acute distress, well-developed, well-nourished Head exam: PRESENT: atraumatic, normocephalic Eye exam: PRESENT: conjunctiva pink, EOMI, PERRLA. ABSENT: scleral icterus Ear exam: PRESENT: normal external ear exam Mouth exam: PRESENT: moist, tongue midline Neck exam: ABSENT: carotid bruit, JVD, lymphadenopathy, thyromegaly Respiratory exam: PRESENT: clear to auscultation joshua. ABSENT: rales, rhonchi, wheezes Cardiovascular exam: PRESENT: RRR. ABSENT: diastolic murmur, rubs, systolic murmur Pulses: PRESENT: normal dorsalis pedis pul Vascular exam: PRESENT: normal capillary refill GI/Abdominal exam: PRESENT: normal bowel sounds, soft. ABSENT: distended, guarding, mass, organolmegaly, rebound, tenderness Rectal exam: PRESENT: deferred Extremities exam: PRESENT: full ROM. ABSENT: calf tenderness, clubbing, pedal edema Neurological exam: PRESENT: alert, awake, oriented to person, oriented to place, oriented to time, oriented to situation, CN II-XII grossly intact. ABSENT: motor sensory deficit Psychiatric exam: PRESENT: appropriate affect, normal mood. ABSENT: homicidal ideation, suicidal ideation Skin exam: PRESENT: dry, intact, warm. ABSENT: cyanosis, rash Results Laboratory Results: 02/06/19 05:18 02/06/19 05:18 01/31/19 03:40 Troponin I 0.044 Impressions: Chest X-Ray 01/31/19 03:29 IMPRESSION: Cardiomegaly. Lungs are clear copyright 2011 [employer]- All Rights Reserved Head CT 01/31/19 03:29 IMPRESSION: 1. No acute intracranial abnormality by CT criteria. This exam was performed according to our departmental dose-optimization program, which includes automated exposure control, adjustment of the mA and/or kV according to patient size and/or use of iterative reconstruction technique. Abdomen/Pelvis CT 01/31/19 05:13 IMPRESSION: 1. Hypodensity involving the distal body and tail of the pancreas with mild haziness surrounding mesenteric vessels. These findings could be seen with pancreatitis. Correlation with serum lipase recommended. Alternatively, if lipase normal, these findings may be related nonspecific enteritis/mesenteritis of infectious or inflammatory etiology. 2. Multiple hypoenhancing hypodensities in the right hepatic lobe, the largest measuring 1.8 cm. These findings are concerning for metastatic disease. 3. Wedge-shaped peripheral hypodensities involving the spleen. These may represent remote infarctions. Apparently, other splenic lesion or metastatic disease may produce this appearance. 4. Incompletely evaluated multiple subsolid nodules in the left lung, largest measuring [address] of the chest recommended for complete characterization. 5. Coronary artery atherosclerosis. This exam was performed according to our departmental dose-optimization program, which includes automated exposure control, adjustment of the mA and/or kV according to patient size and/or use of iterative reconstruction technique. Body Scan Nuclear Medicine 02/02/19 00:00 IMPRESSION: There is no evidence of metastatic disease to bone. Chest CT 02/03/19 12:15 IMPRESSION: 1. MULTIPLE PULMONARY NODULES HIGHLY SUSPICIOUS FOR METASTASES. SPICULATED LESION IN THE RIGHT UPPER LOBE COULD REPRESENT A PRIMARY TUMOR VERSUS A METASTATIC LESION. SMALL LEFT PLEURAL EFFUSION. 2. ILL-DEFINED ENHANCING LESIONS IN THE LIVER HIGHLY SUSPICIOUS FOR METASTASES. INDISTINCT THICKENING AND LOW-ATTENUATION OF THE PANCREAS, NOT COMPLETELY IMAGED. LOW-ATTENUATION LESIONS IN THE SPLEEN COULD BE DUE TO SMALL SPLENIC INFARCTS VERSUS METASTASES. Abdomen CT 02/06/19 06:00 IMPRESSION: Aborted CT-guided biopsy of the hypodense hepatic lesions due to patient's inability to tolerate moderate sedation. Assessment & Plan - Diagnosis (1) Lung cancer, primary, with metastasis from lung to other site Qualifiers: Laterality: left Qualified Code(s): C34.92 - Malignant neoplasm of unspec ified part of left bronchus or lung Is this a current diagnosis for this admission?: Yes Plan: No further treatment planned, plan for home hospice most likely, but need to get equipment to the home and for hospice to talk with family which will happen today - Time Time Spent with patient: 35 or more minutes
[2019-02-07] MEDS: NICOTINE 21 MG/24 HR PATCH.TD24 TD SCH (09:48)
[2019-02-07] MEDS: BUSPIRONE HCL 10 MG TABLET PO SCH ×2 (09:48→21:25)
[2019-02-07] MEDS: CARVEDILOL 6.25 MG TABLET PO SCH ×2 (09:48→21:26)
[2019-02-07] MEDS: FAMOTIDINE 20 MG TABLET PO SCH (09:49)
[2019-02-07] MEDS: FLUTICASONE/UMECLIDIN/VILANTER 100-62.5-25 MCG/DOSE IH SCH (09:49)
[2019-02-07] MEDS: PAROXETINE HCL 20 MG TABLET PO SCH (09:49)
[2019-02-07] MEDS: NORMAL SALINE 1000 ML 1,000 ML IV PRN (13:02)
--- NOTE | 2019-02-07 13:47 | PDOC PROGRESS REPORT ---
Subjective Progress Note for:: 02/07/19 Subjective:: 02/06: Denies abdominal pain. No chest pain or shortness of breath. She is going for a liver biopsy today. 02/07: Patient's blood pressure currently up to the 50 systolic after getting mild sedation for her liver biopsy. Oncology did against pursuing liver biopsy. Upon encounter this morning, patient is able to tell me that the procedure did not do well yesterday because of the blood pressure issue. She is AAO x3 this morning. She is able to tell me that she does has cancer and verbalized herself that she does not want any surgery or chemotherapy for it anyway. Discussed hospice care again and she expressed she is amenable to being transitioned to home hospice. Reason For Visit: COLITIS Physical Exam Vital Signs: Temp Pulse Resp BP Pulse Ox 98.5 F 60 16 134/88 H 100 02/07/19 07:45 02/07/19 07:45 02/07/19 07:45 02/07/19 07:45 02/07/19 07:45 Intake & Output 02/06/19 02/07/19 02/08/19 06:59 06:59 06:59 Intake Total 2096 1200 Balance 2097 1200 Weight 120 lb 9.486 oz 121 lb 14.65 oz General appearance: PRESENT: no acute distress, well-developed, well-nourished Head exam: PRESENT: atraumatic, normocephalic Eye exam: PRESENT: conjunctiva pink, EOMI, PERRLA. ABSENT: scleral icterus Ear exam: PRESENT: normal external ear exam Mouth exam: PRESENT: moist, tongue midline Neck exam: ABSENT: carotid bruit, JVD, lymphadenopathy, thyromegaly Respiratory exam: PRESENT: clear to auscultation joshua. ABSENT: rales, rhonchi, wheezes Cardiovascular exam: PRESENT: RRR. ABSENT: diastolic murmur, rubs, systolic murmur Pulses: PRESENT: normal dorsalis pedis pul GI/Abdominal exam: ABSENT: distended, tenderness Rectal exam: PRESENT: deferred Extremities exam: PRESENT: full ROM. ABSENT: calf tenderness, clubbing, pedal edema Neurological exam: PRESENT: alert, oriented to person, oriented to place, oriented to time, CN II-XII grossly intact. ABSENT: motor sensory deficit Results Laboratory Results: 02/06/19 05:18 02/06/19 05:18 01/31/19 03:40 Troponin I 0.044 Impressions: Chest X-Ray 01/31/19 03:29 IMPRESSION: Cardiomegaly. Lungs are clear copyright 2011 [employer] All Rights Reserved Head CT 01/31/19 03:29 IMPRESSION: 1. No acute intracranial abnormality by CT criteria. This exam was performed according to our departmental dose-optimization program, which includes automated exposure control, adjustment of the mA and/or kV according to patient size and/or use of iterative reconstruction technique. Abdomen/Pelvis CT 01/31/19 05:13 IMPRESSION: 1. Hypodensity involving the distal body and tail of the pancreas with mild haziness surrounding mesenteric vessels. These findings could be seen with pancreatitis. Correlation with serum lipase recommended. Alternatively, if lipase normal, these findings may be related nonspecific enteritis/mesenteritis of infectious or inflammatory etiology. 2. Multiple hypoenhancing hypodensities in the right hepatic lobe, the largest measuring 1.8 cm. These findings are concerning for metastatic disease. 3. Wedge-shaped peripheral hypodensities involving the spleen. These may represent remote infarctions. Apparently, other splenic lesion or metastatic disease may produce this appearance. 4. Incompletely evaluated multiple subsolid nodules in the left lung, largest measuring [address] of the chest recommended for complete characterization. 5. Coronary artery atherosclerosis. This exam was performed according to our departmental dose-optimization program, which includes automated exposure control, adjustment of the mA and/or kV according to patient size and/or use of iterative reconstruction technique. Body Scan Nuclear Medicine 02/02/19 00:00 IMPRESSION: There is no evidence of metastatic disease to bone. Chest CT 02/03/19 12:15 IMPRESSION: 1. MULTIPLE PULMONARY NODULES HIGHLY SUSPICIOUS FOR METASTASES. SPICULATED LESION IN THE RIGHT UPPER LOBE COULD REPRESENT A PRIMARY TUMOR VERSUS A METASTATIC LESION. SMALL LEFT PLEURAL EFFUSION. 2. ILL-DEFINED ENHANCING LESIONS IN THE LIVER HIGHLY SUSPICIOUS FOR METASTASES. INDISTINCT THICKENING AND LOW-ATTENUATION OF THE PANCREAS, NOT COMPLETELY IMAGED. LOW-ATTENUATION LESIONS IN THE SPLEEN COULD BE DUE TO SMALL SPLENIC INFARCTS VERSUS METASTASES. Abdomen CT 02/06/19 06:00 IMPRESSION: Aborted CT-guided biopsy of the hypodense hepatic lesions due to patient's inability to tolerate moderate sedation. Assessment and Plan - Diagnosis (1) Lung cancer, primary, with metastasis from lung to other site Qualifiers: Laterality: left Qualified Code(s): C34.92 - Malignant neoplasm of unspeci fied part of left bronchus or lung Is this a current diagnosis for this admission?: Yes Plan: Liver biopsy deferred. Patient will be transitioned to home hospice. (2) COPD (chronic obstructive pulmonary disease) Is this a current diagnosis for this admission?: Yes Plan: Stable. Not in exacerbation. Breathing treatments as needed. (3) DM type 2 (diabetes mellitus, type 2) Is this a current diagnosis for this admission?: Yes - Time Time Spent with patient: 25-34 minutes
[2019-02-07] MEDS: IPRATROPIUM/ALBUTEROL 0.5-2.5 MG/3 ML AMPUL NEB PRN (14:14)
[2019-02-07] MEDS: OLANZAPINE 5 MG TABLET PO SCH (21:25)
[2019-02-07] MEDS: ALPRAZOLAM 0.5 MG TABLET PO PRN (21:25)
[2019-02-08] MEDS: LEVOTHYROXINE SODIUM 0.05 MG TABLET PO SCH (06:35)
[2019-02-08] MEDS: NORMAL SALINE 1000 ML 1,000 ML IV PRN (06:35)
[2019-02-08] MEDS: HEPARIN SOD (PORCINE) 5,000 UNIT/ML 1 ML VIAL SUBCUT SCH ×3 (06:36→21:15)
[2019-02-08] MEDS: INSULIN REG, HUMAN 100 UNIT/ML 3 ML VIAL (PYX) SUBCUT SCH ×4 (07:34→21:24)
[2019-02-08] MEDS: OMEGA-3 ACID ETHYL ESTERS 1 GM CAPSULE PO SCH ×3 (07:35→16:19)
[2019-02-08] MEDS: FAMOTIDINE 20 MG TABLET PO SCH (10:10)
[2019-02-08] MEDS: PAROXETINE HCL 20 MG TABLET PO SCH (10:10)
[2019-02-08] MEDS: BUSPIRONE HCL 10 MG TABLET PO SCH ×2 (10:10→21:15)
[2019-02-08] MEDS: CARVEDILOL 6.25 MG TABLET PO SCH ×2 (10:10→21:14)
[2019-02-08] MEDS: FLUTICASONE/UMECLIDIN/VILANTER 100-62.5-25 MCG/DOSE IH SCH (10:10)
[2019-02-08] MEDS: NICOTINE 21 MG/24 HR PATCH.TD24 TD SCH (10:10)
[2019-02-08] MEDS: ALPRAZOLAM 0.5 MG TABLET PO PRN (12:44)
[2019-02-08] MEDS: IPRATROPIUM/ALBUTEROL 0.5-2.5 MG/3 ML AMPUL NEB PRN ×2 (13:36→21:36)
--- NOTE | 2019-02-08 17:08 | PDOC PROGRESS REPORT ---
Subjective Progress Note for:: 02/08/19 Subjective:: Patient without new complaints today. No family is at bedside. Nurses report no new issues. Reason For Visit: COLITIS Physical Exam Vital Signs: Temp Pulse Resp BP Pulse Ox 98.6 F 101 H 19 173/80 H 100 02/08/19 15:43 02/08/19 15:43 02/08/19 15:43 02/08/19 15:43 02/08/19 15:43 Intake & Output 02/07/19 02/08/19 02/09/19 06:59 06:59 06:59 Intake Total 1200 2100 480 Balance 1200 2100 480 Weight 55.3 kg 57.8 kg General appearance: PRESENT: well-developed, well-nourished Head exam: PRESENT: normocephalic Respiratory exam: PRESENT: unlabored Neurological exam: PRESENT: alert, awake Skin exam: PRESENT: normal color Results Laboratory Results: 02/06/19 05:18 02/06/19 05:18 01/31/19 03:40 Troponin I 0.044 Impressions: Chest X-Ray 01/31/19 03:29 IMPRESSION: Cardiomegaly. Lungs are clear copyright 2011 [employer]- All Rights Reserved Head CT 01/31/19 03:29 IMPRESSION: 1. No acute intracranial abnormality by CT criteria. This exam was performed according to our departmental dose-optimization program, which includes automated exposure control, adjustment of the mA and/or kV according to patient size and/or use of iterative reconstruction technique. Abdomen/Pelvis CT 01/31/19 05:13 IMPRESSION: 1. Hypodensity involving the distal body and tail of the pancreas with mild haziness surrounding mesenteric vessels. These findings could be seen with pancreatitis. Correlation with serum lipase recommended. Alternatively, if lipase normal, these findings may be related nonspecific enteritis/mesenteritis of infectious or inflammatory etiology. 2. Multiple hypoenhancing hypodensities in the right hepatic lobe, the largest measuring 1.8 cm. These findings are concerning for metastatic disease. 3. Wedge-shaped peripheral hypodensities involving the spleen. These may represent remote infarctions. Apparently, other splenic lesion or metastatic disease may produce this appearance. 4. Incompletely evaluated multiple subsolid nodules in the left lung, largest measuring [address] of the chest recommended for complete characterization. 5. Coronary artery atherosclerosis. This exam was performed according to our departmental dose-optimization program, which includes automated exposure control, adjustment of the mA and/or kV according to patient size and/or use of iterative reconstruction technique. Body Scan Nuclear Medicine 02/02/19 00:00 IMPRESSION: There is no evidence of metastatic disease to bone. Chest CT 02/03/19 12:15 IMPRESSION: 1. MULTIPLE PULMONARY NODULES HIGHLY SUSPICIOUS FOR METASTASES. SPICULATED LESION IN THE RIGHT UPPER LOBE COULD REPRESENT A PRIMARY TUMOR VERSUS A METASTATIC LESION. SMALL LEFT PLEURAL EFFUSION. 2. ILL-DEFINED ENHANCING LESIONS IN THE LIVER HIGHLY SUSPICIOUS FOR METASTASES. INDISTINCT THICKENING AND LOW-ATTENUATION OF THE PANCREAS, NOT COMPLETELY IMAGED. LOW-ATTENUATION LESIONS IN THE SPLEEN COULD BE DUE TO SMALL SPLENIC INFARCTS VERSUS METASTASES. Abdomen CT 02/06/19 06:00 IMPRESSION: Aborted CT-guided biopsy of the hypodense hepatic lesions due to patient's inability to tolerate moderate sedation. Assessment & Plan - Diagnosis (1) Lung cancer, primary, with metastasis from lung to other site Qualifiers: Laterality: left Qualified Code(s): C34.92 - Malignant neoplasm of unspecified part of left bronchus or lung Is this a current diagnosis for this admission?: Yes Plan: Patient is considering Hospice. I am in agreement with this plan. DC home JO[facility] with Hospice once family is ready and all has been arranged. - Time Time Spent with patient: Less than 15 minutes
--- NOTE | 2019-02-08 17:38 | PDOC PROGRESS REPORT ---
Subjective Progress Note for:: 02/08/19 Subjective:: 02/06: Denies abdominal pain. No chest pain or shortness of breath. She is going for a liver biopsy today. 02/07: Patient's blood pressure currently up to the 50 systolic after getting mild sedation for her liver biopsy. Oncology did against pursuing liver biopsy. Upon encounter this morning, patient is able to tell me that the procedure did not do well yesterday because of the blood pressure issue. She is AAO x3 this morning. She is able to tell me that she does has cancer and verbalized herself that she does not want any surgery or chemotherapy for it anyway. Discussed hospice care again and she expressed she is amenable to being transitioned to home hospice. 02/08: No acute issues. Patient appears comfortable this morning. She denies acute complaint. Awaiting for home hospice arrangements. Reason For Visit: COLITIS Physical Exam Vital Signs: Temp Pulse Resp BP Pulse Ox 98.6 F 101 H 19 173/80 H 100 02/08/19 15:43 02/08/19 15:43 02/08/19 15:43 02/08/19 15:43 02/08/19 15:43 Intake & Output 02/07/19 02/08/19 02/09/19 06:59 06:59 06:59 Intake Total 1200 2100 480 Balance 1200 2100 480 Weight 121 lb 14.65 oz 127 lb 6.835 oz General appearance: PRESENT: no acute distress, well-developed, well-nourished Head exam: PRESENT: atraumatic, normocephalic Eye exam: PRESENT: conjunctiva pink, EOMI, PERRLA. ABSENT: scleral icterus Ear exam: PRESENT: normal external ear exam Mouth exam: PRESENT: moist, tongue midline Neck exam: ABSENT: carotid bruit, JVD, lymphadenopathy, thyromegaly Respiratory exam: PRESENT: clear to auscultation joshua. ABSENT: rales, rhonchi, wheezes Cardiovascular exam: PRESENT: RRR. ABSENT: diastolic murmur, rubs, systolic murmur Pulses: PRESENT: normal dorsalis pedis pul GI/Abdominal exam: PRESENT: normal bowel sounds. ABSENT: tenderness Rectal exam: PRESENT: deferred Neurological exam: PRESENT: alert, awake, oriented to person, oriented to place, oriented to time, CN II-XII grossly intact. ABSENT: motor sensory deficit Results Laboratory Results: 02/06/19 05:18 02/06/19 05:18 01/31/19 03:40 Troponin I 0.044 Impressions: Chest X-Ray 01/31/19 03:29 IMPRESSION: Cardiomegaly. Lungs are clear copyright 2010 [employer]- All Rights Reserved Head CT 01/31/19 03:29 IMPRESSION: 1. No acute intracranial abnormality by CT criteria. This exam was performed according to our departmental dose-optimization program, which includes automated exposure control, adjustment of the mA and/or kV according to patient size and/or use of iterative reconstruction technique. Abdomen/Pelvis CT 01/31/19 05:13 IMPRESSION: 1. Hypodensity involving the distal body and tail of the pancreas with mild haziness surrounding mesenteric vessels. These findings could be seen with pancreatitis. Correlation with serum lipase recommended. Alternatively, if lipase normal, these findings may be related nonspecific enteritis/mesenteritis of infectious or inflammatory etiology. 2. Multiple hypoenhancing hypodensities in the right hepatic lobe, the largest measuring 1.8 cm. These findings are concerning for metastatic disease. 3. Wedge-shaped peripheral hypodensities involving the spleen. These may represent remote infarctions. Apparently, other splenic lesion or metastatic disease may produce this appearance. 4. Incompletely evaluated multiple subsolid nodules in the left lung, largest measuring [address] of the chest recommended for complete characterization. 5. Coronary artery atherosclerosis. This exam was performed according to our departmental dose-optimization program, which includes automated exposure control, adjustment of the mA and/or kV according to patient size and/or use of iterative reconstruction technique. Body Scan Nuclear Medicine 02/02/19 00:00 IMPRESSION: There is no evidence of metastatic disease to bone. Chest CT 02/03/19 12:15 IMPRESSION: 1. MULTIPLE PULMONARY NODULES HIGHLY SUSPICIOUS FOR METASTASES. SPICULATED LE SHAN IN THE RIGHT UPPER LOBE COULD REPRESENT A PRIMARY TUMOR VERSUS A METASTATIC LESION. SMALL LEFT PLEURAL EFFUSION. 2. ILL-DEFINED ENHANCING LESIONS IN THE LIVER HIGHLY SUSPICIOUS FOR METASTASES. INDISTINCT THICKENING AND LOW-ATTENUATION OF THE PANCREAS, NOT COMPLETELY IMAGED. LOW-ATTENUATION LESIONS IN THE SPLEEN COULD BE DUE TO SMALL SPLENIC INFARCTS VERSUS METASTASES. Abdomen CT 02/06/19 06:00 IMPRESSION: Aborted CT-guided biopsy of the hypodense hepatic lesions due to patient's inability to tolerate moderate sedation. Assessment and Plan - Diagnosis (1) Lung cancer, primary, with metastasis from lung to other site Qualifiers: Laterality: left Qualified Code(s): C34.92 - Malignant neoplasm of unspecified part of left bronchus or lung Is this a current diagnosis for this admission?: Yes Plan: Liver biopsy deferred. Awaiting for home hospice arrangements to be finalized. (2) COPD (chronic obstructive pulmonary disease) Is this a current diagnosis for this admission?: Yes Plan: Stable. Not in exacerbation. Breathing treatments as needed. (3) DM type 2 (diabetes mellitus, type 2) Is this a current diagnosis for this admission?: Yes - Time Time Spent with patient: 15-24 minutes
[2019-02-08] MEDS: ALBUTEROL SULFATE HFA (90 MCG/PUFF) 200 PUFF/8.5 GM MDI IH PRN (21:09)
[2019-02-08] MEDS: OLANZAPINE 5 MG TABLET PO SCH (21:15)
[2019-02-09] MEDS: ALPRAZOLAM 0.5 MG TABLET PO PRN (00:11)
[2019-02-09] MEDS: NORMAL SALINE 1000 ML 1,000 ML IV PRN (05:22)
[2019-02-09] MEDS: HEPARIN SOD (PORCINE) 5,000 UNIT/ML 1 ML VIAL SUBCUT SCH ×3 (05:22→22:06)
[2019-02-09] MEDS: LEVOTHYROXINE SODIUM 0.05 MG TABLET PO SCH (05:22)
[2019-02-09] MEDS: OMEGA-3 ACID ETHYL ESTERS 1 GM CAPSULE PO SCH ×4 (07:41→16:25)
[2019-02-09] MEDS: INSULIN REG, HUMAN 100 UNIT/ML 3 ML VIAL (PYX) SUBCUT SCH ×4 (07:41→22:06)
[2019-02-09] MEDS: FLUTICASONE/UMECLIDIN/VILANTER 100-62.5-25 MCG/DOSE IH SCH (09:05)
[2019-02-09] MEDS: FAMOTIDINE 20 MG TABLET PO SCH (09:05)
[2019-02-09] MEDS: CARVEDILOL 6.25 MG TABLET PO SCH ×2 (09:05→22:12)
[2019-02-09] MEDS: BUSPIRONE HCL 10 MG TABLET PO SCH ×2 (09:05→22:15)
[2019-02-09] MEDS: NICOTINE 21 MG/24 HR PATCH.TD24 TD SCH (09:05)
[2019-02-09] MEDS: PAROXETINE HCL 20 MG TABLET PO SCH (09:05)
[2019-02-09] MEDS: OXYCODONE HCL IR 5 MG TABLET PO PRN (18:11)
[2019-02-09] MEDS: OLANZAPINE 5 MG TABLET PO SCH (22:15)
[2019-02-10] MEDS: HEPARIN SOD (PORCINE) 5,000 UNIT/ML 1 ML VIAL SUBCUT SCH ×3 (05:27→21:34)
[2019-02-10] MEDS: NORMAL SALINE 1000 ML 1,000 ML IV PRN ×2 (05:37→23:45)
[2019-02-10] MEDS: LEVOTHYROXINE SODIUM 0.05 MG TABLET PO SCH (05:37)
[2019-02-10] MEDS: INSULIN REG, HUMAN 100 UNIT/ML 3 ML VIAL (PYX) SUBCUT SCH ×4 (08:22→21:33)
[2019-02-10] MEDS: OMEGA-3 ACID ETHYL ESTERS 1 GM CAPSULE PO SCH ×3 (08:22→17:09)
[2019-02-10] MEDS: PAROXETINE HCL 20 MG TABLET PO SCH (09:30)
[2019-02-10] MEDS: CARVEDILOL 6.25 MG TABLET PO SCH ×2 (09:33→21:33)
[2019-02-10] MEDS: FAMOTIDINE 20 MG TABLET PO SCH (09:33)
[2019-02-10] MEDS: BUSPIRONE HCL 10 MG TABLET PO SCH ×2 (09:33→21:33)
[2019-02-10] MEDS: FLUTICASONE/UMECLIDIN/VILANTER 100-62.5-25 MCG/DOSE IH SCH (09:34)
[2019-02-10] MEDS: NICOTINE 21 MG/24 HR PATCH.TD24 TD SCH (09:41)
--- NOTE | 2019-02-10 11:18 | PDOC PROGRESS REPORT ---
Subjective Progress Note for:: 02/09/19 Subjective:: 02/06: Denies abdominal pain. No chest pain or shortness of breath. She is going for a liver biopsy today. 02/07: Patient's blood pressure currently up to the 50 systolic after getting mild sedation for her liver biopsy. Oncology did against pursuing liver biopsy. Upon encounter this morning, patient is able to tell me that the procedure did not do well yesterday because of the blood pressure issue. She is AAO x3 this morning. She is able to tell me that she does has cancer and verbalized herself that she does not want any surgery or chemotherapy for it anyway. Discussed hospice care again and she expressed she is amenable to being transitioned to home hospice. 02/09: No acute issues. Patient appears comfortable this morning. She continues to deny pippa acute complaint. Awaiting for home hospice arrangements to be finalized. Reason For Visit: COLITIS Physical Exam Vital Signs: Temp Pulse Resp BP Pulse Ox 98.5 F 105 H 21 H 196/98 H 96 02/09/19 15:27 02/09/19 15:27 02/09/19 15:27 02/09/19 15:27 02/09/19 15:27 Intake & Output 02/08/19 02/09/19 02/10/19 06:59 06:59 06:59 Intake Total 2100 1740 236 Balance 2100 1740 236 Weight 127 lb 6.835 oz 128 lb 1.417 oz General appearance: PRESENT: no acute distress, well-developed, well-nourished Head exam: PRESENT: atraumatic, normocephalic Eye exam: PRESENT: conjunctiva pink, EOMI, PERRLA. ABSENT: scleral icterus Ear exam: PRESENT: normal external ear exam Mouth exam: PRESENT: moist, tongue midline Neck exam: ABSENT: carotid bruit, JVD, lymphadenopathy, thyromegaly Respiratory exam: PRESENT: clear to auscultation joshua. ABSENT: rales, rhonchi, wheezes Cardiovascular exam: PRESENT: RRR. ABSENT: diastolic murmur, rubs, systolic murmur Pulses: PRESENT: normal dorsalis pedis pul GI/Abdominal exam: PRESENT: normal bowel sounds. ABSENT: tenderness Rectal exam: PRESENT: deferred Extremities exam: PRESENT: full ROM. ABSENT: calf tenderness, clubbing, pedal edema Neurological exam: PRESENT: alert, awake, oriented to person, oriented to place, oriented to time, oriented to situation, CN II-XII grossly intact. ABSENT: motor sensory deficit Results Laboratory Results: 02/06/19 05:18 02/06/19 05:18 01/31/19 03:40 Troponin I 0.044 Impressions: Chest X-Ray 01/31/19 03:29 IMPRESSION: Cardiomegaly. Lungs are clear copyright 2011 [employer]- All Rights Reserved Head CT 01/31/19 03:29 IMPRESSION: 1. No acute intracranial abnormality by CT criteria. This exam was performed according to our departmental dose-optimization program, which includes automated exposure control, adjustment of the mA and/or kV according to patient size and/or use of iterative reconstruction technique. Abdomen/Pelvis CT 01/31/19 05:13 IMPRESSION: 1. Hypodensity involving the distal body and tail of the pancreas with mild haziness surrounding mesenteric vessels. These findings could be seen with pancreatitis. Correlation with serum lipase recommended. Alternatively, if lipase normal, these findings may be related nonspecific enteritis/mesenteritis of infectious or inflammatory etiology. 2. Multiple hypoenhancing hypodensities in the right hepatic lobe, the largest measuring 1.8 cm. These findings are concerning for metastatic disease. 3. Wedge-shaped peripheral hypodensities involving the spleen. These may represent remote infarctions. Apparently, other splenic lesion or metastatic disease may produce this appearance. 4. Incompletely evaluated multiple subsolid nodules in the left lung, largest measuring [address] of the chest recommended for complete characterization. 5. Coronary artery atherosclerosis. This exam was performed according to our departmental dose-optimization program, which includes automated exposure control, adjustment of the mA and/or kV according to patient size and/or use of iterative reconstruction technique. Body Scan Nuclear Medicine 02/02/19 00:00 IMPRESSION: There is no evidence of metastatic disease to bone. Chest CT 02/03/19 12:15 IMPRESSION: 1. MULTIPLE PULMONARY NODULES HIGHLY SUSPICIOUS FOR METASTASES. SPICULATED LESION IN THE RIGHT UPPER LOBE COULD REPRESENT A PRIMARY TUMOR VERSUS A METASTATIC LESION. SMALL LEFT PLEURAL EFFUSION. 2. ILL-DEFINED ENHANCING LESIONS IN THE LIVER HIGHLY SUSPICIOUS FOR METASTASES. INDISTINCT THICKENING AND LOW-ATTENUATION OF THE PANCREAS, NOT COMPLETELY IMAGED. LOW-ATTENUATION LESIONS IN THE SPLEEN COULD BE DUE TO SMALL SPLENIC INFARCTS VERSUS METASTASES. Abdomen CT 02/06/19 06:00 IMPRESSION: Aborted CT-guided biopsy of the hypodense hepatic lesions due to patient's inability to tolerate moderate sedation. Assessment and Plan - Diagnosis (1) Lung cancer, primary, with metastasis from lung to other site Qualifiers: Laterality: left Qualified Code(s): C34.92 - Malignant neoplasm of unspecified part of left bronchus or lung Is this a current diagnosis for this admission?: Yes Plan: Liver biopsy deferred. Awaiting for home hospice arrangements to be finalized. (2) COPD (chronic obstructive pulmonary disease) Is this a current diagnosis for this admission?: Yes Plan: Stable. Not in exacerbation. Breathing treatments as needed. (3) DM type 2 (diabetes mellitus, type 2) Is this a current diagnosis for this admission?: Yes - Time Time Spent with patient: 15-24 minutes
--- NOTE | 2019-02-10 16:52 | PDOC PROGRESS REPORT ---
Subjective Progress Note for:: 02/10/19 Subjective:: 02/06: Denies abdominal pain. No chest pain or shortness of breath. She is going for a liver biopsy today. 02/07: Patient's blood pressure currently up to the 50 systolic after getting mild sedation for her liver biopsy. Oncology did against pursuing liver biopsy. Upon encounter this morning, patient is able to tell me that the procedure did not do well yesterday because of the blood pressure issue. She is AAO x3 this morning. She is able to tell me that she does has cancer and verbalized herself that she does not want any surgery or chemotherapy for it anyway. Discussed hospice care again and she expressed she is amenable to being transitioned to home hospice. 02/09: No acute issues. Patient appears comfortable this morning. She continues to deny any acute complaint. Awaiting for home hospice arrangements to be finalized. 02/10: No acute event overnight. Denies acute complaint. Apparently DME has not been delivered yet at patient's home. Reason For Visit: COLITIS Physical Exam Vital Signs: Temp Pulse Resp BP Pulse Ox 98.2 F 88 16 148/58 H 100 02/10/19 07:40 02/10/19 07:40 02/10/19 07:40 02/10/19 07:40 02/10/19 07:40 Intake & Output 02/09/19 02/10/19 02/11/19 06:59 06:59 06:59 Intake Total 1740 1473 Output Total 200 Balance 1740 1273 Weight 128 lb 1.417 oz 123 lb 7.342 oz General appearance: PRESENT: no acute distress, well-developed, well-nourished Head exam: PRESENT: atraumatic, normocephalic Eye exam: PRESENT: conjunctiva pink, EOMI, PERRLA. ABSENT: scleral icterus Ear exam: PRESENT: normal external ear exam Mouth exam: PRESENT: moist, tongue midline Neck exam: ABSENT: carotid bruit, JVD, lymphadenopathy, thyromegaly Respiratory exam: PRESENT: clear to auscultation joshua. ABSENT: rales, rhonchi, wheezes Cardiovascular exam: PRESENT: RRR. ABSENT: diastolic murmur, rubs, systolic mu rmur Pulses: PRESENT: normal dorsalis pedis pul GI/Abdominal exam: PRESENT: normal bowel sounds. ABSENT: guarding, tenderness Rectal exam: PRESENT: deferred Extremities exam: PRESENT: full ROM. ABSENT: calf tenderness, clubbing, pedal edema Neurological exam: PRESENT: alert, awake, oriented to person, oriented to place, oriented to time, oriented to situation, CN II-XII grossly intact. ABSENT: motor sensory deficit Results Laboratory Results: 02/06/19 05:18 02/06/19 05:18 01/31/19 03:40 Troponin I 0.044 Impressions: Chest X-Ray 01/31/19 03:29 IMPRESSION: Cardiomegaly. Lungs are clear copyright 2011 [employer] All Rights Reserved Head CT 01/31/19 03:29 IMPRESSION: 1. No acute intracranial abnormality by CT criteria. This exam was performed according to our departmental dose-optimization program, which includes automated exposure control, adjustment of the mA and/or kV according to patient size and/or use of iterative reconstruction technique. Abdomen/Pelvis CT 01/31/19 05:13 IMPRESSION: 1. Hypodensity involving the distal body and tail of the pancreas with mild haziness surrounding mesenteric vessels. These findings could be seen with pancreatitis. Correlation with serum lipase recommended. Alternatively, if lipase normal, these findings may be related nonspecific enteritis/mesenteritis of infectious or inflammatory etiology. 2. Multiple hypoenhancing hypodensities in the right hepatic lobe, the largest measuring 1.8 cm. These findings are concerning for metastatic disease. 3. Wedge-shaped peripheral hypodensities involving the spleen. These may represent remote infarctions. Apparently, other splenic lesion or metastatic disease may produce this appearance. 4. Incompletely evaluated multiple subsolid nodules in the left lung, largest measuring [address] of the chest recommended for complete characterization. 5. Coronary artery atherosclerosis. This exam was performed according to our departmental dose-optimization program, which includes automated exposure control, adjustment of the mA and/or kV according to patient size and/or use of iterative reconstruction technique. Body Scan Nuclear Medicine 02/02/19 00:00 IMPRESSION: There is no evidence of metastatic disease to bone. Chest CT 02/03/19 12:15 IMPRESSION: 1. MULTIPLE PULMONARY NODULES HIGHLY SUSPICIOUS FOR METASTASES. SPICULATED LESION IN THE RIGHT UPPER LOBE COULD REPRESENT A PRIMARY TUMOR VERSUS A METASTATIC LESION. SMALL LEFT PLEURAL EFFUSION. 2. ILL-DEFINED ENHANCING LESIONS IN THE LIVER HIGHLY SUSPICIOUS FOR METASTASES. INDISTINCT THICKENING AND LOW-ATTENUATION OF THE PANCREAS, NOT COMPLETELY IMAGED. LOW-ATTENUATION LESIONS IN THE SPLEEN COULD BE DUE TO SMALL SPLENIC INFARCTS VERSUS METASTASES. Abdomen CT 02/06/19 06:00 IMPRESSION: Aborted CT-guided biopsy of the hypodense hepatic lesions due to patient's inability to tolerate moderate sedation. Assessment and Plan - Diagnosis (1) Lung cancer, primary, with metastasis from lung to other site Qualifiers: Laterality: left Qualified Code(s): C34.92 - Malignant neoplasm of unspecified part of left bronchus or lung Is this a current diagnosis for this admission?: Yes Plan: Liver biopsy deferred. Awaiting for home hospice arrangements to be finalized. (2) COPD (chronic obstructive pulmonary disease) Is this a current diagnosis for this admission?: Yes Plan: Stable. Not in exacerbation. Breathing treatments as needed. (3) DM type 2 (diabetes mellitus, type 2) Is this a current diagnosis for this admission?: Yes - Time Time Spent with patient: 15-24 minutes
[2019-02-10] MEDS: ALPRAZOLAM 0.5 MG TABLET PO PRN (18:19)
[2019-02-10] MEDS: OLANZAPINE 5 MG TABLET PO SCH (21:31)
[2019-02-10] MEDS: OXYCODONE HCL IR 5 MG TABLET PO PRN (21:55)
[2019-02-11] MEDS: HEPARIN SOD (PORCINE) 5,000 UNIT/ML 1 ML VIAL SUBCUT SCH ×2 (05:18→15:23)
[2019-02-11] MEDS: INSULIN REG, HUMAN 100 UNIT/ML 3 ML VIAL (PYX) SUBCUT SCH ×2 (07:15→12:18)
[2019-02-11] MEDS: FAMOTIDINE 20 MG TABLET PO SCH (09:36)
[2019-02-11] MEDS: CARVEDILOL 6.25 MG TABLET PO SCH (09:36)
[2019-02-11] MEDS: BUSPIRONE HCL 10 MG TABLET PO SCH (09:36)
[2019-02-11] MEDS: NICOTINE 21 MG/24 HR PATCH.TD24 TD SCH (09:36)
[2019-02-11] MEDS: OMEGA-3 ACID ETHYL ESTERS 1 GM CAPSULE PO SCH ×2 (09:36→12:00)
[2019-02-11] MEDS: LEVOTHYROXINE SODIUM 0.05 MG TABLET PO SCH (09:37)
[2019-02-11] MEDS: PAROXETINE HCL 20 MG TABLET PO SCH (09:37)
[2019-02-11] MEDS: FLUTICASONE/UMECLIDIN/VILANTER 100-62.5-25 MCG/DOSE IH SCH (09:37)
[2019-02-11] MEDS: ALPRAZOLAM 0.5 MG TABLET PO PRN (15:30)
--- NOTE | 2019-02-11 16:09 | PDOC DISCHARGE SUMMARY ---
Impression - Admit/DC Date/PCP Admission Date/Primary Care Provider: 01/31/19 08:02 Discharge Date: 02/11/19 - Discharge Diagnosis (1) Lung cancer, primary, with metastasis from lung to other site Is this a current diagnosis for this admission?: Yes (2) COPD (chronic obstructive pulmonary disease) Is this a current diagnosis for this admission?: Yes (3) DM type 2 (diabetes mellitus, type 2) Is this a current diagnosis for this admission?: Yes - Additional Information Resuscitation Status: Do Not Resuscitate Discharge Diet: As Tolerated Discharge Activity: Activity As Tolerated, Balance Activity w/Rest Referrals: RADHA PEARL MD [ACTIVE STAFF] - 02/22/19 2:30 pm Home Medications: Albuterol Sulfate [Albuterol Sulfate Hfa] 2 puff IH TIDP PRN 01/31/19 Alprazolam [Xanax] 1 mg PO Q12HP PRN 01/31/19 Buspirone HCl [Buspar 10 mg Tablet] 10 mg PO Q12 01/31/19 Carvedilol [Coreg 6.25 mg Tablet] 6.25 mg PO Q12 01/31/19 Cholecalciferol (Vitamin D3) [Vitamin D3 5000 unit Capsule] 10,000 unit PO DAILY 01/31/19 Fluticasone/Umeclidin/Vilanter [Trelegy 100-62.5-25 Mcg Ellipta 14 Dose/Dpi] 1 puff IH DAILY 01/31/19 Ipratropium/Albuterol Sulfate [Duoneb 3 ml Ampul] 3 ml NEB RTQ6HP PRN 01/31/19 Levothyroxine Sodium [Synthroid 0.05 mg Tablet] 50 mcg PO Q6AM 01/31/19 Olanzapine [Zyprexa] 10 mg PO QHS 01/31/19 [place]-3/Dha/Epa/Fish Oil [Fish Oil 1,000 mg Softgel] 1,000 mg PO MEALS 01/31/19 Oxycodone HCl [Roxicodone] 15 mg PO Q4HP PRN 01/31/19 Paroxetine HCl [Paxil] 30 mg PO DAILY 01/31/19 History of Present Illiness History of Present Illness: Admitting hospitalist's H&P: AUDIE GALICIA is a 78 year old female of lung cancer metastasis to the liver, COPD not on home oxygen, chronic smoker, diabetes mellitus, gout brought in by the family members with complaints of altered mental status from last night. As per the family members patient is complaining of nonspecific abdominal pain back pain since yesterday. No nausea no vomiting no constipation noticed foul- smelling diarrhea. Not on antibiotics recently. Went to see the patient in the emergency room son was at bedside he has the power of divorce attorney and he requested to make her mom DNR/DNI. Hospital Course Hospital Course: This 78-year-old female who was admitted with lung cancer with likely metastasis to the liver. She was followed by oncology. She was scheduled for a liver biopsy however on 02/07, she became severely hypotensive to the 50s systolic after getting off sedation for liver biopsy. This was deferred to vomiting as per surgical biopsy. Patient and family also deferred this. Patient is able to tell me that she does have cancer and verbalized herself that she does not want any surgery or chemotherapy for it anyway. She will be discharged on home hospice. Physical Exam Vital Signs: Temp Pulse Resp BP Pulse Ox 98.3 F 89 18 153/62 H 94 02/11/19 11:41 02/11/19 14:44 02/11/19 14:44 02/11/19 11:41 02/11/19 14:44 Intake & Output 02/10/19 02/11/19 02/12/19 06:59 06:59 06:59 Intake Total 1473 1597 236 Output Total 200 Balance 1273 1597 236 Weight 123 lb 7.342 oz 130 lb 15.273 oz General appearance: PRESENT: no acute distress, well-developed, well-nourished Head exam: PRESENT: atraumatic, normocephalic Eye exam: PRESENT: conjunctiva pink, EOMI, PERRLA. ABSENT: scleral icterus Ear exam: PRESENT: normal external ear exam Mouth exam: PRESENT: moist, tongue midline Neck exam: ABSENT: carotid bruit, JVD, lymphadenopathy, thyromegaly Respiratory exam: PRESENT: clear to auscultation joshua. ABSENT: rales, rhonchi, wheezes Cardiovascular exam: PRESENT: RRR. ABSENT: diastolic murmur, rubs, systolic murmur Pulses: PRESENT: normal dorsalis pedis pul GI/Abdominal exam: PRESENT: normal bowel sounds, soft. ABSENT: distended, guarding, mass, organolmegaly, rebound, tenderness Rectal exam: PRESENT: deferred Extremities exam: PRESENT: full ROM. ABSENT: calf tenderness, clubbing, pedal e isela Neurological exam: PRESENT: alert, awake, oriented to person, oriented to place, oriented to time, oriented to situation, CN II-XII grossly intact. ABSENT: motor sensory deficit Results Laboratory Results: WBC 8.3 10^3/uL (4.0-10.5) 02/06/19 05:18 RBC 4.38 10^6/uL (3.72-5.28) 02/06/19 05:18 Hgb 12.2 g/dL (12.0-15.5) 02/06/19 05:18 Hct 36.2 % (36.0-47.0) 02/06/19 05:18 MCV 83 fl (80-97) 02/06/19 05:18 MCH 27.8 pg (27.0-33.4) 02/06/19 05:18 MCHC 33.6 g/dL (32.0-36.0) 02/06/19 05:18 RDW 16.3 % (11.5-14.0) H 02/06/19 05:18 Plt Count 113 10^3/uL (150-450) L 02/06/19 05:18 Lymph % (Auto) 6.7 % (13-45) L 02/06/19 05:18 [place] % (Auto) 9.0 % (3-13) 02/06/19 05:18 Eos % (Auto) 5.4 % (0-6) 02/06/19 05:18 Baso % (Auto) 0.5 % (0-2) 02/06/19 05:18 Absolute Neuts (auto) 6.5 10^3/uL (1.7-8.2) 02/06/19 05:18 Absolute Lymphs (auto) 0.6 10^3/uL (0.5-4.7) 02/06/19 05:18 Absolute Monos (auto) 0.7 10^3/uL (0.1-1.4) 02/06/19 05:18 Absolute Eos (auto) 0.5 10^3/uL (0.0-0.6) 02/06/19 05:18 Absolute Basos (auto) 0.0 10^3/uL (0.0-0.2) 02/06/19 05:18 Seg Neutrophils % 78.4 % (42-78) H 02/06/19 05:18 Platelet Estimate Cancelled 02/01/19 04:06 Large Platelets PRESENT 01/31/19 03:40 Platelet Comment ADEQUATE 01/31/19 03:40 Anisocytosis SLIGHT 01/31/19 03:40 PT 14.0 SEC (11.4-15.4) 02/06/19 05:18 INR 1.07 02/06/19 05:18 APTT 29.5 SEC (23.5-35.8) 02/06/19 05:18 VBG pH 7.37 (7.30-7.42) 01/31/19 03:40 VBG pCO2 52.0 mmHg (35-63) 01/31/19 03:40 VBG HCO3 29.6 mmol/L (20-32) 01/31/19 03:40 VBG Base Excess 3.1 mmol/L 01/31/19 03:40 Sodium 132.2 mmol/L (137-145) L 02/06/19 05:18 Potassium 3.8 mmol/L (3.6-5.0) 02/06/19 05:18 Chloride 97 mmol/L (98-107) L 02/06/19 05:18 Carbon Dioxide 31 mmol/L (22-30) H 02/06/19 05:18 Anion Gap 4 (5-19) L 02/06/19 05:18 BUN 10 mg/dL (7-20) 02/06/19 05:18 Creatinine 0.71 mg/dL (0.52-1.25) 02/06/19 05:18 Est GFR ( Amer) > 60 (>60) 02/06/19 05:18 Est GFR (MDRD) Non-Af > 60 (>60) 02/06/19 05:18 Glucose 165 mg/dL (75-110) H 02/06/19 05:18 POC Glucose 273 mg/dL (70-110) H 02/11/19 15:44 Lactic Acid 1.9 mmol/L (0.7-2.1) 01/31/19 03:40 Calcium 9.3 mg/dL (8.4-10.2) 02/06/19 05:18 Magnesium 1.6 mg/dL (1.6-2.3) 02/06/19 05:18 Total Bilirubin 0.4 mg/dL (0.2-1.3) 02/06/19 05:18 Direct Bilirubin 0.1 mg/dL (0.0-0.4) 02/06/19 05:18 Neonat Total Bilirubin Not Reportable 02/06/19 05:18 Neonat Direct Bilirubin Not Reportable 02/06/19 05:18 Neonat Indirect Bili Not Reportable 02/06/19 05:18 AST 32 U/L (14-36) 02/06/19 05:18 ALT 13 U/L (<35) 02/06/19 05:18 Alkaline Phosphatase 96 U/L (38-126) 02/06/19 05:18 Troponin I 0.044 ng/mL 01/31/19 03:40 Total Protein 4.6 g/dL (6.3-8.2) L 02/06/19 05:18 Albumin 2.6 g/dL (3.5-5.0) L 02/06/19 05:18 Lipase 53.7 U/L (23-300) 01/31/19 03:40 TSH 1.69 uIU/mL (0.47-4.68) 02/01/19 04:06 Urine Color YELLOW 01/31/19 04:35 Urine Appearance CLEAR 01/31/19 04:35 Urine pH 7.0 (5.0-9.0) 01/31/19 04:35 Ur Specific [place] 1.006 01/31/19 04:35 Urine Protein 30 mg/dL (NEGATIVE) H 01/31/19 04:35 Urine Glucose (UA) NEGATIVE mg/dL (NEGATIVE) 01/31/19 04:35 Urine Ketones NEGATIVE mg/dL (NEGATIVE) 01/31/19 04:35 Urine Blood SMALL (NEGATIVE) H 01/31/19 04:35 Urine Nitrite NEGATIVE (NEGATIVE) 01/31/19 04:35 Urine Bilirubin NEGATIVE (NEGATIVE) 01/31/19 04:35 Urine Urobilinogen NEGATIVE mg/dL (<2.0) 01/31/19 04:35 Ur Leukocyte Esterase NEGATIVE (NEGATIVE) 01/31/19 04:35 Urine WBC (Auto) 0 /HPF 01/31/19 04:35 Urine Mucus (Auto) RARE /LPF 01/31/19 04:35 Urine Ascorbic Acid NEGATIVE (NEGATIVE) 01/31/19 04:35 Stl C. Difficile GDH Ag NEGATIVE (NEGATIVE) 02/03/19 10:30 Stl C.difficile Tox A&B NEGATIVE (NEGATIVE) 02/03/19 10:30 Slides for Path Review Cancelled 02/01/19 04:06 01/31/19 03:40 Troponin I 0.044 Impressions: Chest X-Ray 01/31/19 03:29 IMPRESSION: Cardiomegaly. Lungs are clear copyright 2010 [employer]- All Rights Reserved Head CT 01/31/19 03:29 IMPRESSION: 1. No acute intracranial abnormality by CT criteria. This exam was performed according to our departmental dose-optimization program, which includes automated exposure control, adjustment of the mA and/or kV according to patient size and/or use of iterative reconstruction technique. Abdomen/Pelvis CT 01/31/19 05:13 IMPRESSION: 1. Hypodensity involving the distal body and tail of the pancreas with mild haziness surrounding mesenteric vessels. These findings could be seen with pancreatitis. Correlation with serum lipase recommended. Alternatively, if lipase normal, these findings may be related nonspecific enteritis/mesenteritis of infectious or inflammatory etiology. 2. Multiple hypoenhancing hypodensities in the right hepatic lobe, the largest measuring 1.8 cm. These findings are concerning for metastatic disease. 3. Wedge-shaped peripheral hypodensities involving the spleen. These may represent remote infarctions. Apparently, other splenic lesion or metastatic disease may produce this appearance. 4. Incompletely evaluated multiple subsolid nodules in the left lung, largest measuring [address] of the chest recommended for complete characterization. 5. Coronary artery atherosclerosis. This exam was performed according to our departmental dose-optimization program, which includes automated exposure control, adjustment of the mA and/or kV according to patient size and/or use of iterative reconstruction technique. Body Scan Nuclear Medicine 02/02/19 00:00 IMPRESSION: There is no evidence of metastatic disease to bone. Chest CT 02/03/19 12:15 IMPRESSION: 1. MULTIPLE PULMONARY NODULES HIGHLY SUSPICIOUS FOR METASTASES. SPICULATED LESION IN THE RIGHT UPPER LOBE COULD REPRESENT A PRIMARY TUMOR VERSUS A METASTATIC LESION. SMALL LEFT PLEURAL EFFUSION. 2. ILL-DEFINED ENHANCING LESIONS IN THE LIVER HIGHLY SUSPICIOUS FOR METASTASES. INDISTINCT THICKENING AND LOW-ATTENUATION OF THE PANCREAS, NOT COMPLETELY IMAGED. LOW-ATTENUATION LESIONS IN THE SPLEEN COULD BE DUE TO SMALL SPLENIC INFARCTS VERSUS METASTASES. Abdomen CT 02/06/19 06:00 IMPRESSION: Aborted CT-guided biopsy of the hypodense hepatic lesions due to patient's inability to tolerate moderate sedation. Stroke Is this a Stroke Patient?: No Acute Heart Failure - Is this a Heart Failure Patient?: No
[2019-02-11] MEDS ORDERED: NALOXONE HCL INJ/PF 0.4 MG/1 ML SDV ONE (16:20)
[2019-02-11 16:30] VITALS: BP 136/75
== END 2019-02-11 18:30 | disposition hospice, home (50) | DRG 181 ==
LOC: ER 03:10 → EH 08:02 → 4S 14:18 → 4N 02-03 18:35
PROVIDERS: ADMIT Internal Medicine; ATTEND Internal Medicine
DX: C34.92 Malignant neoplasm of unspecified part of left bronchus or lung (principal); C78.7 Secondary malignant neoplasm of liver and intrahepatic bile duct; E44.0 Moderate protein-calorie malnutrition; J44.9 Chronic obstructive pulmonary disease, unspecified; E11.9 Type 2 diabetes mellitus without complications; I25.10 Atherosclerotic heart disease of native coronary artery without angina pectoris; Z66 Do not resuscitate; M10.9 Gout, unspecified; F32.9 Major depressive disorder, single episode, unspecified; I10 Essential (primary) hypertension; F17.210 Nicotine dependence, cigarettes, uncomplicated; I95.9 Hypotension, unspecified; Z53.8 Procedure and treatment not carried out for other reasons; Z79.890 Hormone replacement therapy; Z79.899 Other long term (current) drug therapy; Z88.3 Allergy status to other anti-infective agents; Z88.0 Allergy status to penicillin; Z99.81 Dependence on supplemental oxygen
CPT/HCPCS: 36415; 51701; 70450; 71045; 71260; 74150; 74177; 78306; 80053; 81001; 82803; 82962; 83605; 83690; 83735; 84443; 84484; 85025; 85610; 85730; 87040; 87086; 87324; 87449; 93005; 93010; 94640; 96361; 96365; 99285; A9561; J0360; J0696; J1644; J1815; J1956; J2060; J2250; J2310; J3010; J3490; J7030; J7040; J7620; Q9969